=== PATIENT | female | born 1945 ===

== ENCOUNTER 2019-08-20 19:24 | Inpatient (IN) | payer MEDICARE, MEDICAID ==
[~2019-08-20] VITALS: Ht 152.4 cm; Wt 50.4 kg
--- NOTE | 2019-08-20 19:43 | PHYS DOC ---
Adult General Chief Complaint Chief Complaint: PSYCH EVALUATION HPI HPI Patient is a here for med clearance for psych placement [facility]. no medical complaints at this time incresaingly agitated and has a bed at [facility] already. Review of Systems Review of Systems Limited by dementia Allergies Allergies Allergies Coded Allergies Type Severity Reaction Last Updated Verified Penicillins Allergy Unknown 08/20/19 Yes mushroom Allergy Unknown 08/20/19 Yes sulfamethoxazole Allergy Unknown 08/20/19 Yes trimethoprim Allergy Unknown 08/20/19 Yes Physical Exam Physical Exam Constitutional: Well developed, well nourished, no acute distress, non-toxic appearance. [] HENT: Normocephalic, atraumatic, bilateral external ears normal, oropharynx moist, no oral exudates, nose normal. [] Eyes: PERRLA, EOMI, conjunctiva normal, no discharge. [] Neck: Normal range of motion, no tenderness, supple, no stridor. [] Cardiovascular:Heart rate regular rhythm, no murmur [] Lungs & Thorax: Bilateral breath sounds clear to auscultation [] Abdomen: Bowel sounds normal, soft, no tenderness, no masses, no pulsatile masses. [] Skin: Warm, dry, no erythema, no rash. [] Extremities: No tenderness, no cyanosis, no clubbing, ROM intact, no edema. [] Neurologic: Alert and responsive. normal motor function, normal sensory function, no focal deficits noted. [] Psychologic: redirectable calm in the emergency deparmtnet. . [] Current Patient Data Vital Signs Temperature (Fahrenheit): * 98.4 degrees F (97.6-99.5) Patient Temperature * 98.4 degrees F (97.5-99.5) Temperature Source * Oral Blood Pressure Systolic * 135 mm Hg (100-140) Blood Pressure Diastolic * 78 mm Hg (60-100) Blood Pressure Mean * 97 mm Hg Blood Pressure Location * Left Arm Blood Pressure Source * Automatic Cuff Pulse Rate * 76 beats per minute (60-90) Pulse Assessment Method * Monitor Respiratory Rate * 16 breaths per minute (12-24) Oxygen Delivery Method * Room Air Bedside Pulse Oximetry * 97 % EKG EKG []EKG shows a normal sinus rhythm with rate of 74 nonspecific changes anteriorly QTC is 411 no STEMI interpreted by me the time of encounter. Radiology/Procedures Radiology/Procedures [] Course & Med Decision Making Course & Med Decision Making Pertinent Labs and Imaging studies reviewed. (See chart for details) []Labs and EKG looked normal patient is well-appearing the emergency room stable vital signs acceptable for medical clearance at this time. Dragon Disclaimer Dragon Disclaimer This electronic medical record was generated, in whole or in part, using a voice recognition dictation system. Departure Departure: Impression: Primary Impression: Dementia Disposition: 65 XFER TO PSYCH HOSP/UNIT Condition: STABLE ROSA WILKINSON MD Aug 20, 2019 19:43
[2019-08-20 20:20] LABS: CALCIUM 8.4 mg/dL (8.5-10.1); CREATININE 0.5 mg/dL (0.6-1.0); GFR 121.3; POTASSIUM 3.9 mmol/L (3.5-5.1)
[2019-08-20 20:25] LABS: ALBUMIN 2.8 g/dL (3.4-5.0); ALBUMIN/GLOBULIN RATIO 0.7 (1.0-1.7); MAGNESIUM 1.9 mg/dL (1.8-2.4); TOTAL BILIRUBIN 0.2 mg/dL (0.2-1.0); TOTAL PROTEIN 6.9 g/dL (6.4-8.2)
[2019-08-20] MEDS ORDERED: MIRTAZAPINE 15 MG TABLET PO SCH (20:30)
[2019-08-20 20:31] LABS: BASO % 0 % (0-3); EOS # 0.3 x10^3/uL (0.0-0.7); EOS % 3 % (0-3); HEMATOCRIT 32.3 % (36.0-47.0); HEMOGLOBIN 10.4 g/dL (12.0-15.5); LYMPH # 1.5 x10^3/uL (1.0-4.8); LYMPH % 18 % (24-48); MEAN CORPUSCULAR HEMOGLOBIN 28 pg (25-35); MEAN CORPUSCULAR HGB CONC 32 g/dL (31-37); MEAN CORPUSCULAR VOLUME 87 fL (79-100); MONO # 0.6 x10^3/uL (0.0-1.1); MONO % 7 % (0-9); NEUT # 5.9 x10^3uL (1.8-7.7); NEUT % 71 % (31-73); PLATELET COUNT 428 x10^3/uL (140-400); RED BLOOD COUNT 3.73 x10^6/uL (3.50-5.40); RED CELL DISTRIBUTION WIDTH 16.7 % (11.5-14.5); WHITE BLOOD COUNT 8.3 x10^3/uL (4.0-11.0)
[2019-08-20 20:58] LABS: BACTERIA,URINE 0 /HPF (0-FEW); BILIRUBIN,URINE NEG (NEG); CLARITY,URINE CLEAR; COLOR,URINE YELLOW; GLUCOSE,URINE NEG (NEG); NITRITE,URINE NEG (NEG); RBC,URINE RARE /HPF (0-2); SQUAMOUS EPITHELIAL CELL,UR OCC /LPF; UROBILINOGEN,URINE 0.2 mg/dL (0.2 mg/dL); WBC,URINE RARE /HPF (0-4)
[2019-08-20] MEDS ORDERED: ACET325T21 PO (21:14)
[2019-08-20] MEDS ORDERED: ESCITALOPRAM OX10 MG PO (21:14)
[2019-08-20] MEDS ORDERED: QUET25TA5 PO (21:14)
[2019-08-20] MEDS ORDERED: THIA100T57 PO (21:14)
[2019-08-20] MEDS ORDERED: MIRT15TA3 PO (21:14)
[2019-08-20] MEDS ORDERED: ACETAMINOPHEN 325 MG TABLET PO PRN ×2 (22:15)
[2019-08-20] MEDS ORDERED: MAGNESIUM HYDROXIDE 2,400 MG/30 ML ORAL.SUSP. PO PRN (22:15)
[2019-08-20] MEDS ORDERED: MAG HYDROX/AL HYDROX/SIMETH 30 ML ORAL.SUSP PO PRN (22:15)
[2019-08-20] MEDS ORDERED: METHYL SALICYLATE/MENTHOL TOPICAL OINTMENT 57GM TUBE. TP PRN (22:15)
[2019-08-20 22:26] VITALS: BP 125/66
[2019-08-20] MEDS: QUEtiapine 25 MG TABLET. PO SCH (22:47)
[2019-08-20] MEDS: MIRTAZAPINE 15 MG TABLET PO SCH (22:47)
[2019-08-21 05:52] VITALS: BP 105/64
--- NOTE | 2019-08-21 06:51 | EKG ---
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
[2019-08-21] MEDS: CITALOPRAM 20 MG TABLET. PO SCH (08:59)
[2019-08-21] MEDS: THIAMINE 100 MG TABLET. PO SCH (08:59)
[2019-08-21 14:01] LABS: THYROID STIM HORMONE (TSH) 3.859 uIU/mL (0.358-3.740)
[2019-08-21 15:37] VITALS: BP 128/76
[2019-08-21] MEDS: CHOLECALCIFEROL (VITAMIN D3) 50,000 UNIT CAPSULE PO SCH (17:08)
[2019-08-21 18:07] LABS: THYROXINE 5.5 ug/dL (4.5-12.0)
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
[2019-08-21] MEDS: QUEtiapine 25 MG TABLET. PO SCH (19:55)
[2019-08-21] MEDS: MIRTAZAPINE 15 MG TABLET PO SCH (19:55)
--- NOTE | 2019-08-21 21:11 | PDOC ---
Exam Note: Ojrge Note: Please also refer to the separate dictated note~for this date of service dictated separately.~Patient seen individually. Discussed the patient with Nursing staff reviewed the chart.~Reviewed interim history and current functioning. Reviewed vital signs,~Labs/ Radiology~and current medications noted below. Continue current treatment with the changes noted in the dictated addendum note Assessment: Vital Signs/I&O: Vital Signs Date Time Temp Pulse Resp B/P (MAP) Pulse Ox O2 Delivery O2 Flow Rate FiO2 08/21/19 15:37 97.1 88 22 128/76 (93) 96 08/20/19 22:26 Room Air I & O 08/20/19 08/20/19 08/21/19 15:00 23:00 07:00 Intake Total 0 ml Balance 0 ml Current Medications: Meds: Current Medications Medications (Trade) Dose Ordered Sig/Julissa Route PRN Reason Start Time Stop Time Status Last Admin Dose Admin Thiamine HCl (Vitamin B-1) 100 mg DAILY PO 08/21/19 09:00 08/21/19 08:59 Quetiapine Fumarate (SEROquel) 25 mg HS PO 08/20/19 22:30 08/21/19 19:55 Citalopram Hydrobromide (CeleXA) 20 mg DAILY PO 08/21/19 09:00 08/21/19 08:59 Mirtazapine (Remeron) 15 mg HS PO 08/20/19 22:30 08/21/19 19:55 Vitamin D (Vitamin D3) 50,000 unit WEEKLY PO 08/21/19 16:45 08/21/19 17:08 I have reviewed the current psychotropics carefully including drug interactions. Risk benefit ratio favors no change other than as noted in my dictated progress note. Diagnosis: Problems: (1) Anxiety disorder (2) Dementia in Alzheimer's disease with delusions (3) Dementia in Alzheimer's disease with depression (4) Dementia, vascular, with delusions (5) Dementia, vascular, with depression (6) Impulse control disorder (7) Bipolar disorder, curr episode mixed, severe, with psychotic features PILO WOLFE MD Aug 21, 2019 21:10
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
[2019-08-22 00:07] LABS: HEMOGLOBIN A1C 5.2 % (4.8-5.6)
[2019-08-22 06:03] VITALS: BP 108/71
[2019-08-22] MEDS: THIAMINE 100 MG TABLET. PO SCH (08:07)
[2019-08-22] MEDS: CITALOPRAM 20 MG TABLET. PO SCH (08:07)
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
[2019-08-22 15:51] VITALS: BP 113/71
[2019-08-22] MEDS: QUEtiapine 25 MG TABLET. PO SCH (17:21)
[2019-08-22] MEDS: MIRTAZAPINE 15 MG TABLET PO SCH (19:32)
--- NOTE | 2019-08-22 20:59 | PDOC ---
Exam Note: Jorge Note: Please also refer to the separate dictated note~for this date of service dictated separately.~Patient seen individually. Discussed the patient with Nursing staff reviewed the chart.~Reviewed interim history and current functioning. Reviewed vital signs,~Labs/ Radiology~and current medications noted below. Continue current treatment with the changes noted in the dictated addendum note Assessment: Vital Signs/I&O: Vital Signs Date Time Temp Pulse Resp B/P (MAP) Pulse Ox O2 Delivery O2 Flow Rate FiO2 08/22/19 15:51 97.6 81 18 113/71 (85) 96 Room Air I & O 08/21/19 08/21/19 08/22/19 15:00 23:00 07:00 Intake Total 840 ml 240 ml 120 ml Balance 840 ml 240 ml 120 ml Current Medications: Meds: Current Medications Medications (Trade) Dose Ordered Sig/Julissa Route PRN Reason Start Time Stop Time Status Last Admin Dose Admin Quetiapine Fumarate (SEROquel) 12.5 mg 0900,1700 PO 08/22/19 17:15 08/22/19 17:21 I have reviewed the current psychotropics carefully including drug interactions. Risk benefit ratio favors no change other than as noted in my dictated progress note. Diagnosis: Problems: (1) Bipolar disorder, curr episode mixed, severe, with psychotic features (2) Anxiety disorder (3) Dementia in Alzheimer's disease with delusions (4) Dementia in Alzheimer's disease with depression (5) Dementia, vascular, with delusions (6) Dementia, vascular, with depression (7) Impulse control disorder PILO WOLFE MD Aug 22, 2019 20:59
[2019-08-23 05:52] VITALS: BP 108/78
[2019-08-23] MEDS: DIVALPROEX 125 MG CAP.SPRINK PO SCH ×2 (08:54→17:08)
[2019-08-23] MEDS: CITALOPRAM 20 MG TABLET. PO SCH (08:54)
[2019-08-23] MEDS: THIAMINE 100 MG TABLET. PO SCH (08:54)
[2019-08-23] MEDS: QUEtiapine 25 MG TABLET. PO SCH ×2 (08:54→17:08)
[2019-08-23 15:37] VITALS: BP 121/76
[2019-08-23] MEDS: MIRTAZAPINE 15 MG TABLET PO SCH (20:03)
--- NOTE | 2019-08-23 21:06 | PDOC ---
Exam Note: Jorge Note: Please also refer to the separate dictated note~for this date of service dictated separately.~Patient seen individually. Discussed the patient with Nursing staff reviewed the chart.~Reviewed interim history and current functioning. Reviewed vital signs,~Labs/ Radiology~and current medications noted below. Continue current treatment with the changes noted in the dictated addendum note Assessment: Vital Signs/I&O: Vital Signs Date Time Temp Pulse Resp B/P (MAP) Pulse Ox O2 Delivery O2 Flow Rate FiO2 08/23/19 15:37 97.5 105 22 121/76 (91) 96 Room Air I & O 08/22/19 08/22/19 08/23/19 15:00 23:00 07:00 Intake Total 240 ml 360 ml Balance 240 ml 360 ml Current Medications: Meds: Current Medications Medications (Trade) Dose Ordered Sig/Julissa Route PRN Reason Start Time Stop Time Status Last Admin Dose Admin Divalproex Sodium (Depakote Sprinkles) 125 mg 0900,1700 PO 08/23/19 09:00 08/23/19 17:08 I have reviewed the current psychotropics carefully including drug interactions. Risk benefit ratio favors no change other than as noted in my dictated progress note. Diagnosis: Problems: (1) Bipolar disorder, curr episode mixed, severe, with psychotic features (2) Anxiety disorder (3) Dementia in Alzheimer's disease with delusions (4) Dementia in Alzheimer's disease with depression (5) Dementia, vascular, with delusions (6) Dementia, vascular, with depression (7) Impulse control disorder PILO WOLFE MD Aug 23, 2019 21:06
[2019-08-24 05:59] VITALS: BP 97/67
[2019-08-24] MEDS: QUEtiapine 25 MG TABLET. PO SCH ×2 (08:43→08:50)
[2019-08-24] MEDS: THIAMINE 100 MG TABLET. PO SCH (08:43)
[2019-08-24] MEDS: DIVALPROEX 125 MG CAP.SPRINK PO SCH ×2 (08:49→17:00)
[2019-08-24] MEDS: CITALOPRAM 20 MG TABLET. PO SCH (08:49)
[2019-08-24 15:48] VITALS: BP 112/74
[2019-08-24] MEDS: MIRTAZAPINE 15 MG TABLET PO SCH (20:27)
--- NOTE | 2019-08-24 21:07 | PDOC ---
Exam Note: Jorge Note: Please also refer to the separate dictated note~for this date of service dictated separately.~Patient seen individually. Discussed the patient with Nursing staff reviewed the chart.~Reviewed interim history and current functioning. Reviewed vital signs,~Labs/ Radiology~and current medications noted below. Continue current treatment with the changes noted in the dictated addendum note Assessment: Vital Signs/I&O: Vital Signs Date Time Temp Pulse Resp B/P (MAP) Pulse Ox O2 Delivery O2 Flow Rate FiO2 08/24/19 15:48 97.6 70 16 112/74 (87) 97 08/23/19 15:37 Room Air I & O 08/23/19 08/23/19 08/24/19 15:00 23:00 07:00 Intake Total 720 ml 120 ml Balance 720 ml 120 ml Current Medications: I have reviewed the current psychotropics carefully including drug interactions. Risk benefit ratio favors no change other than as noted in my dictated progress note. Diagnosis: Problems: (1) Bipolar disorder, curr episode mixed, severe, with psychotic features (2) Dementia (3) Anxiety disorder (4) Dementia in Alzheimer's disease with delusions (5) Dementia in Alzheimer's disease with depression (6) Dementia, vascular, with delusions (7) Dementia, vascular, with depression (8) Impulse control disorder PILO WOLFE MD Aug 24, 2019 21:07
--- NOTE | 2019-08-24 23:10 | PN ---
DATE: 08/22/2019 This late entry of 08/22 covers elements not covered in my initial note. SUBJECTIVE: I met with the patient evening of 08/22. Per REGINO Anderson, the patient slept 7 hours previous night. She has been restless, confused, difficult to redirect, constantly up and down the hallway in her wheelchair. Received Zyprexa x 2 p.r.n. of 2.5 mg. REVIEW OF SYSTEMS: Ambulation impaired, in wheelchair. No CV, , pulmonary, eye, ENT system symptoms on review. Reliability poor. MENTAL STATUS EXAMINATION: Oriented to herself. Insight, judgment, recent and remote memory, attention, concentration, fund of knowledge poor consistent with her diagnoses. IMPRESSION: Major neurocognitive disorder; Alzheimer, vascular with delusion; depression; behavioral disturbance; anxiety disorder, unspecified; impulse control disorder, unspecified; bipolar disorder, mixed with psychotic features; history of alcohol abuse. PLAN: From a psychiatric standpoint, we will start Seroquel 12.5 mg 9 a.m. and 5 p.m. as a mood stabilizer. She has had marked mood lability, anxiety, irritability, and we will also start Depakote as a mood stabilizer 125 mg 9:00 a.m. and 5:00 p.m. Check CBC, CMP, valproic acid level, ammonia level in 3 days. Maintain Lexapro 10 mg a day, Remeron 15 mg at bedtime, Seroquel 25 mg at bedtime, Zyprexa p.r.n. Rest unchanged for now from initial note. PILO WOLFE MD DR: GEORGE/dacia JOB#: [id number] / [id number]
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
[2019-08-25 05:21] VITALS: BP 115/70
[2019-08-25] MEDS: THIAMINE 100 MG TABLET. PO SCH (07:57)
[2019-08-25] MEDS: QUEtiapine 25 MG TABLET. PO SCH ×2 (07:57→17:00)
[2019-08-25] MEDS: CITALOPRAM 20 MG TABLET. PO SCH (07:57)
[2019-08-25] MEDS: DIVALPROEX 125 MG CAP.SPRINK PO SCH ×2 (07:57→17:00)
[2019-08-25 09:53] LABS: BASO % 0 % (0-3); EOS # 0.3 x10^3/uL (0.0-0.7); EOS % 4 % (0-3); HEMATOCRIT 32.1 % (36.0-47.0); HEMOGLOBIN 10.4 g/dL (12.0-15.5); LYMPH # 1.9 x10^3/uL (1.0-4.8); LYMPH % 25 % (24-48); MEAN CORPUSCULAR HEMOGLOBIN 28 pg (25-35); MEAN CORPUSCULAR HGB CONC 32 g/dL (31-37); MEAN CORPUSCULAR VOLUME 85 fL (79-100); MONO # 0.7 x10^3/uL (0.0-1.1); MONO % 9 % (0-9); NEUT # 4.6 x10^3uL (1.8-7.7); NEUT % 62 % (31-73); PLATELET COUNT 423 x10^3/uL (140-400); RED BLOOD COUNT 3.76 x10^6/uL (3.50-5.40); RED CELL DISTRIBUTION WIDTH 17.4 % (11.5-14.5); WHITE BLOOD COUNT 7.5 x10^3/uL (4.0-11.0)
[2019-08-25 10:10] LABS: ALBUMIN 3.1 g/dL (3.4-5.0); ALBUMIN/GLOBULIN RATIO 0.7 (1.0-1.7); CALCIUM 8.9 mg/dL (8.5-10.1); CREATININE 0.6 mg/dL (0.6-1.0); GFR 98.3; TOTAL BILIRUBIN 0.2 mg/dL (0.2-1.0); TOTAL PROTEIN 7.5 g/dL (6.4-8.2)
[2019-08-25 16:08] VITALS: BP 101/63
[2019-08-25] MEDS: MIRTAZAPINE 15 MG TABLET PO SCH (20:34)
--- NOTE | 2019-08-25 21:44 | PDOC ---
Exam Note: Jorge Note: Please also refer to the separate dictated note~for this date of service dictated separately.~Patient seen individually. Discussed the patient with Nursing staff reviewed the chart.~Reviewed interim history and current functioning. Reviewed vital signs,~Labs/ Radiology~and current medications noted below. Continue current treatment with the changes noted in the dictated addendum note Assessment: Vital Signs/I&O: Vital Signs Date Time Temp Pulse Resp B/P (MAP) Pulse Ox O2 Delivery O2 Flow Rate FiO2 08/25/19 16:08 97.0 78 18 101/63 (76) 98 08/23/19 15:37 Room Air I & O 08/24/19 08/24/19 08/25/19 15:00 23:00 07:00 Intake Total 840 ml 480 ml Balance 840 ml 480 ml Labs: Laboratory Tests Test 08/25/19 09:30 White Blood Count 7.5 x10^3/uL (4.0-11.0) Red Blood Count 3.76 x10^6/uL (3.50-5.40) Hemoglobin 10.4 g/dL (12.0-15.5) L Hematocrit 32.1 % (36.0-47.0) L Mean Corpuscular Volume 85 fL (79-100) Mean Corpuscular Hemoglobin 28 pg (25-35) Mean Corpuscular Hemoglobin Concent 32 g/dL (31-37) Red Cell Distribution Width 17.4 % (11.5-14.5) H Platelet Count 423 x10^3/uL (140-400) H Neutrophils (%) (Auto) 62 % (31-73) Lymphocytes (%) (Auto) 25 % (24-48) Monocytes (%) (Auto) 9 % (0-9) Eosinophils (%) (Auto) 4 % (0-3) H Basophils (%) (Auto) 0 % (0-3) Neutrophils # (Auto) 4.6 x10^3uL (1.8-7.7) Lymphocytes # (Auto) 1.9 x10^3/uL (1.0-4.8) Monocytes # (Auto) 0.7 x10^3/uL (0.0-1.1) Eosinophils # (Auto) 0.3 x10^3/uL (0.0-0.7) Basophils # (Auto) 0.0 x10^3/uL (0.0-0.2) Sodium Level 145 mmol/L (136-145) Potassium Level 4.0 mmol/L (3.5-5.1) Chloride Level 107 mmol/L (98-107) Carbon Dioxide Level 28 mmol/L (21-32) Anion Gap 10 (6-14) Blood Urea Nitrogen 14 mg/dL (7-20) Creatinine 0.6 mg/dL (0.6-1.0) Estimated GFR (Cockcroft-Gault) 98.3 BUN/Creatinine Ratio 23 (6-20) H Glucose Level 111 mg/dL (70-99) H Calcium Level 8.9 mg/dL (8.5-10.1) Total Bilirubin 0.2 mg/dL (0.2-1.0) Aspartate Amino Transferase (AST) 24 U/L (15-37) Alanine Aminotransferase (ALT) 20 U/L (14-59) Alkaline Phosphatase 84 U/L (46-116) Ammonia < 10 mcmol/L (11-34) L Total Protein 7.5 g/dL (6.4-8.2) Albumin 3.1 g/dL (3.4-5.0) L Albumin/Globulin Ratio 0.7 (1.0-1.7) L Current Medications: I have reviewed the current psychotropics carefully including drug interactions. Risk benefit ratio favors no change other than as noted in my dictated progress note. Diagnosis: Problems: (1) Bipolar disorder, curr episode mixed, severe, with psychotic features (2) Dementia (3) Anxiety disorder (4) Dementia in Alzheimer's disease with delusions (5) Dementia in Alzheimer's disease with depression (6) Dementia, vascular, with delusions (7) Dementia, vascular, with depression (8) Impulse control disorder PILO WOLFE MD Aug 25, 2019 21:44
[2019-08-26 06:57] VITALS: BP 104/68
[2019-08-26] MEDS: CITALOPRAM 20 MG TABLET. PO SCH (08:00)
[2019-08-26] MEDS: THIAMINE 100 MG TABLET. PO SCH (08:00)
[2019-08-26] MEDS: DIVALPROEX 125 MG CAP.SPRINK PO SCH ×2 (08:00→17:00)
[2019-08-26] MEDS: QUEtiapine 25 MG TABLET. PO SCH ×2 (08:00→17:00)
[2019-08-26 11:06] LABS: VAL ACID 26 mcg/mL (50-100)
[2019-08-26 15:51] VITALS: BP 100/66
--- NOTE | 2019-08-26 16:00 | PN ---
DATE: 08/24/2019 PSYCHIATRIC PROGRESS NOTE This late entry 08/24/2019 covers elements not covered in my initial note. SUBJECTIVE: I met with the patient evening of 08/24/2019. Per REGINO Benavides, the patient slept 6 hours previous night. She has been confused, agitated, yelling at times, refused meds in the morning. She wanted 2 bags of Oreos before she would take her meds and then did take it after this. REVIEW OF SYSTEMS: Ambulation impaired, in wheelchair. No CV, , pulmonary, eye system symptoms on review. MENTAL STATUS EXAM: Oriented to herself. Insight, judgment, recent and remote memory, attention, concentration, fund of knowledge poor, consistent with her diagnosis mentioned in my initial note. PLAN: No change from initial note. MAN Silas WOLFE MD DR: GEORGE/dacia JOB#: [id number] / [id number]
--- NOTE | 2019-08-26 20:53 | PDOC ---
Exam Note: Jorge Note: Please also refer to the separate dictated note~for this date of service dictated separately.~Patient seen individually. Discussed the patient with Nursing staff reviewed the chart.~Reviewed interim history and current functioning. Reviewed vital signs,~Labs/ Radiology~and current medications noted below. Continue current treatment with the changes noted in the dictated addendum note Assessment: Vital Signs/I&O: Vital Signs Date Time Temp Pulse Resp B/P (MAP) Pulse Ox O2 Delivery O2 Flow Rate FiO2 08/26/19 15:51 97.9 73 18 100/66 (77) 97 08/23/19 15:37 Room Air I & O 08/25/19 08/25/19 08/26/19 15:00 23:00 07:00 Intake Total 720 ml 240 ml Balance 720 ml 240 ml Labs: Laboratory Tests Test 08/26/19 09:30 Valproic Acid Level 26 mcg/mL (50-100) L Valproic Acid Last Dose Date 08/25/19 Valproic Acid Last Dose Time 1700 Current Medications: I have reviewed the current psychotropics carefully including drug interactions. Risk benefit ratio favors no change other than as noted in my dictated progress note. Diagnosis: Problems: (1) Bipolar disorder, curr episode mixed, severe, with psychotic features (2) Anxiety disorder (3) Dementia in Alzheimer's disease with delusions (4) Dementia in Alzheimer's disease with depression (5) Dementia, vascular, with delusions (6) Dementia, vascular, with depression (7) Impulse control disorder PILO WOLFE MD Aug 26, 2019 20:53
[2019-08-26] MEDS: MIRTAZAPINE 15 MG TABLET PO SCH (20:59)
--- NOTE | 2019-08-26 21:46 | PN ---
DATE: 08/25/2019 PSYCHIATRIC PROGRESS NOTE. This late entry of 08/25/2019 covers the elements not covered in my initial note. SUBJECTIVE: I met with the patient in the evening of 08/25/2019. The patient slept 7-1/4 hours previous night. She remains confused in a wheelchair, but better per nursing report. Valproic acid level is due on 08/26/2019. REVIEW OF SYSTEMS: Ambulation impaired, in wheelchair. No CV, , pulmonary, eye, ENT system symptoms on review. Reliability poor. MENTAL STATUS EXAM: Oriented to herself. Insight, judgment, recent and remote memory, attention, concentration, fund of knowledge poor, consistent with her diagnosis mentioned in my initial note. PLAN: No change from initial note. MAN Silas WOLFE MD DR: GEORGE/dacia JOB#: [id number] / [id number]
[2019-08-27 05:59] VITALS: BP 96/67
[2019-08-27] MEDS: DIVALPROEX 125 MG CAP.SPRINK PO SCH ×2 (08:00→17:24)
[2019-08-27] MEDS: THIAMINE 100 MG TABLET. PO SCH (08:00)
[2019-08-27] MEDS: CITALOPRAM 20 MG TABLET. PO SCH (08:00)
[2019-08-27] MEDS: QUEtiapine 25 MG TABLET. PO SCH ×2 (08:01→17:24)
[2019-08-27 15:53] VITALS: BP 109/67
[2019-08-27] MEDS: MIRTAZAPINE 15 MG TABLET PO SCH (19:45)
--- NOTE | 2019-08-27 21:13 | PDOC ---
Exam Note: Jorge Note: Please also refer to the separate dictated note~for this date of service dictated separately.~Patient seen individually. Discussed the patient with Nursing staff reviewed the chart.~Reviewed interim history and current functioning. Reviewed vital signs,~Labs/ Radiology~and current medications noted below. Continue current treatment with the changes noted in the dictated addendum note Assessment: Vital Signs/I&O: Vital Signs Date Time Temp Pulse Resp B/P (MAP) Pulse Ox O2 Delivery O2 Flow Rate FiO2 08/27/19 15:53 97.7 80 20 109/67 (81) 97 Room Air I & O 08/26/19 08/26/19 08/27/19 15:00 23:00 07:00 Intake Total 600 ml 120 ml Balance 600 ml 120 ml Current Medications: Meds: Current Medications Medications (Trade) Dose Ordered Sig/Julissa Route PRN Reason Start Time Stop Time Status Last Admin Dose Admin Divalproex Sodium (Depakote Sprinkles) 250 mg 0900,1700 PO 08/27/19 09:00 08/27/19 17:24 I have reviewed the current psychotropics carefully including drug interactions. Risk benefit ratio favors no change other than as noted in my dictated progress note. Diagnosis: Problems: (1) Bipolar disorder, curr episode mixed, severe, with psychotic features (2) Anxiety disorder (3) Dementia in Alzheimer's disease with delusions (4) Dementia in Alzheimer's disease with depression (5) Dementia, vascular, with delusions (6) Dementia, vascular, with depression (7) Impulse control disorder PILO WOLFE MD Aug 27, 2019 21:13
--- NOTE | 2019-08-28 01:24 | PN ---
DATE: 08/26/2019 PSYCHIATRIC PROGRESS NOTE This late entry of 08/26 covers elements not covered in my initial note. SUBJECTIVE: I met with the patient in the evening. Per Ines RN, the patient slept 7 hours the previous night. She remains confused, agitated, yelling at times, delusional, somewhat abrasive at staff, refusing medications. Valproic acid level is less than 10. Ammonia is 26. REVIEW OF SYSTEMS: Ambulation impaired, in wheelchair. No CV, , pulmonary, eye system symptoms on review. Reliability poor. MENTAL STATUS EXAMINATION: Oriented to herself. Insight, judgment, recent and remote memory, attention, concentration, fund of knowledge poor; consistent with her diagnoses. FINAL DIAGNOSES IMPRESSION: Major neurocognitive disorder, Alzheimer, vascular with delusion, depression, behavioral disturbance; anxiety disorder, unspecified; impulse control disorder, unspecified. PLAN: Increase Depakote Sprinkles from 125 twice a day to 250 twice a day. Check CBC, CMP, valproic acid level, ammonia level in 3 days. Continue Celexa, Remeron, Seroquel unchanged for now, along with Zyprexa p.r.n. MAN Silas WOLFE MD DR: GEORGE/dacia JOB#: [id number] / [id number]
[2019-08-28 05:52] VITALS: BP 112/63
[2019-08-28] MEDS: CHOLECALCIFEROL (VITAMIN D3) 50,000 UNIT CAPSULE PO SCH (08:48)
[2019-08-28] MEDS: DIVALPROEX 125 MG CAP.SPRINK PO SCH ×2 (08:49→17:34)
[2019-08-28] MEDS: QUEtiapine 25 MG TABLET. PO SCH (08:49)
[2019-08-28] MEDS: CITALOPRAM 20 MG TABLET. PO SCH (08:49)
[2019-08-28] MEDS: THIAMINE 100 MG TABLET. PO SCH (08:49)
[2019-08-28 15:47] VITALS: BP 94/54
[2019-08-28] MEDS: MIRTAZAPINE 15 MG TABLET PO SCH (19:58)
--- NOTE | 2019-08-28 21:18 | PDOC ---
Exam Note: Jorge Note: Please also refer to the separate dictated note~for this date of service dictated separately.~Patient seen individually. Discussed the patient with Nursing staff reviewed the chart.~Reviewed interim history and current functioning. Reviewed vital signs,~Labs/ Radiology~and current medications noted below. Continue current treatment with the changes noted in the dictated addendum note Assessment: Vital Signs/I&O: Vital Signs Date Time Temp Pulse Resp B/P (MAP) Pulse Ox O2 Delivery O2 Flow Rate FiO2 08/28/19 15:47 98.7 83 20 94/54 (67) 96 08/27/19 15:53 Room Air I & O 08/27/19 08/27/19 08/28/19 15:00 23:00 07:00 Intake Total 600 ml 340 ml Balance 600 ml 340 ml Current Medications: I have reviewed the current psychotropics carefully including drug interactions. Risk benefit ratio favors no change other than as noted in my dictated progress note. Diagnosis: Problems: (1) Bipolar disorder, curr episode mixed, severe, with psychotic features (2) Anxiety disorder (3) Dementia in Alzheimer's disease with delusions (4) Dementia in Alzheimer's disease with depression (5) Dementia, vascular, with delusions (6) Dementia, vascular, with depression (7) Impulse control disorder PILO WOLFE MD Aug 28, 2019 21:18
--- NOTE | 2019-08-28 22:18 | PN ---
DATE: 08/27/2019 This late entry, 08/27, covers elements not covered in my initial note. SUBJECTIVE: I met with the patient evening of 08/27. Per REGINO Lau, the patient slept 6-3/4 hours previous night. She was agitated previous night, yelling, screaming, had a bowel movement, then did better, less anxious during the day on 08/27, but anxious, restless, constantly moving in her wheelchair, agitated, yelling after lunch, received Zyprexa p.r.n. at 1330, then did better. REVIEW OF SYSTEMS: Ambulation impaired, in wheelchair. No CV, , pulmonary, eye, ENT system symptoms on review. Reliability poor. MENTAL STATUS EXAM: Oriented to herself. Insight, judgment, recent and remote memory, attention, concentration, fund of knowledge poor, consistent with her diagnosis mentioned in my initial note. PLAN: No change from initial note. PILO WOLFE MD DR: GEORGE/dacia JOB#: [id number] / [id number]
[2019-08-29 05:51] VITALS: BP 99/64
[2019-08-29 07:00] LABS: BASO % 0 % (0-3); EOS # 0.3 x10^3/uL (0.0-0.7); EOS % 6 % (0-3); HEMATOCRIT 32.3 % (36.0-47.0); HEMOGLOBIN 10.4 g/dL (12.0-15.5); LYMPH # 1.4 x10^3/uL (1.0-4.8); LYMPH % 24 % (24-48); MEAN CORPUSCULAR HEMOGLOBIN 28 pg (25-35); MEAN CORPUSCULAR HGB CONC 32 g/dL (31-37); MEAN CORPUSCULAR VOLUME 85 fL (79-100); MONO # 0.5 x10^3/uL (0.0-1.1); MONO % 8 % (0-9); NEUT # 3.7 x10^3uL (1.8-7.7); NEUT % 62 % (31-73); PLATELET COUNT 338 x10^3/uL (140-400); RED BLOOD COUNT 3.79 x10^6/uL (3.50-5.40); RED CELL DISTRIBUTION WIDTH 17.3 % (11.5-14.5); WHITE BLOOD COUNT 5.9 x10^3/uL (4.0-11.0)
[2019-08-29 07:19] LABS: ALBUMIN 2.9 g/dL (3.4-5.0); ALBUMIN/GLOBULIN RATIO 0.7 (1.0-1.7); ALK PHOS 82 U/L (46-116); ALT (SGPT) 17 U/L (14-59); ANION GAP 9 (6-14); AST (SGOT) 16 U/L (15-37); BLOOD UREA NITROGEN 12 mg/dL (7-20); BUN/CREATININE RATIO 20 (6-20); CALCIUM 8.8 mg/dL (8.5-10.1); CARBON DIOXIDE 30 mmol/L (21-32); CHLORIDE 107 mmol/L (98-107); CREATININE 0.6 mg/dL (0.6-1.0); GFR 98.3; GLUCOSE 113 mg/dL (70-99); POTASSIUM 3.7 mmol/L (3.5-5.1); SODIUM 146 mmol/L (136-145); TOTAL BILIRUBIN 0.3 mg/dL (0.2-1.0); TOTAL PROTEIN 7.3 g/dL (6.4-8.2)
[2019-08-29 07:26] LABS: VAL ACID 57 mcg/mL (50-100)
[2019-08-29] MEDS: THIAMINE 100 MG TABLET. PO SCH (08:36)
[2019-08-29] MEDS: CITALOPRAM 20 MG TABLET. PO SCH (08:36)
[2019-08-29] MEDS: DIVALPROEX 125 MG CAP.SPRINK PO SCH ×2 (08:36→17:41)
[2019-08-29] MEDS: QUEtiapine 25 MG TABLET. PO SCH ×2 (08:36→17:42)
[2019-08-29 15:56] VITALS: BP 113/74
[2019-08-29] MEDS: MIRTAZAPINE 15 MG TABLET PO SCH (19:46)
--- NOTE | 2019-08-29 21:56 | PN ---
DATE: 08/28/2019 This late entry, 08/28, covers elements not covered in my initial note. SUBJECTIVE: I met with the patient in the evening. Per REGINO Lau, the patient slept 7 hours previous night. She is pleasant and compliant in the morning, around lunchtime was yelling, received Zyprexa and Zydis at lunch and then did better, less psychotic, but confused. REVIEW OF SYSTEMS: Ambulation impaired, in wheelchair. As I met with her in the evening, she was constantly pushing the wheelchair forward and backward, restless, anxious. No CV, , pulmonary, eye system symptoms on review. MENTAL STATUS EXAM: Oriented to herself. Insight, judgment, recent and remote memory, attention, concentration, fund of knowledge poor, consistent with her diagnoses. IMPRESSION: Major neurocognitive disorder, Alzheimer, vascular with delusion, depression, behavioral disturbance; anxiety disorder, unspecified; impulse control disorder, unspecified. PLAN: Increase Seroquel from 12.5 mg 0900 and 1700 to 25 mg 0900 and 1700. Continue Celexa, Remeron along with Depakote at current dosage. Valproic acid level is to be drawn on 08/29 and we will adjust thereafter to reach therapeutic level if clinically indicated. PILO WOLFE MD DR: GEORGE/dacia JOB#: [id number] / [id number]
--- NOTE | 2019-08-29 22:07 | PDOC ---
Exam Note: Jorge Note: Please also refer to the separate dictated note~for this date of service dictated separately.~Patient seen individually. Discussed the patient with Nursing staff reviewed the chart.~Reviewed interim history and current functioning. Reviewed vital signs,~Labs/ Radiology~and current medications noted below. Continue current treatment with the changes noted in the dictated addendum note Assessment: Vital Signs/I&O: Vital Signs Date Time Temp Pulse Resp B/P (MAP) Pulse Ox O2 Delivery O2 Flow Rate FiO2 08/29/19 15:56 97.3 68 16 113/74 (87) 96 Room Air I & O 08/28/19 08/28/19 08/29/19 15:00 23:00 07:00 Intake Total 600 ml 600 ml Balance 600 ml 600 ml Labs: Laboratory Tests Test 08/29/19 06:35 White Blood Count 5.9 x10^3/uL (4.0-11.0) Red Blood Count 3.79 x10^6/uL (3.50-5.40) Hemoglobin 10.4 g/dL (12.0-15.5) L Hematocrit 32.3 % (36.0-47.0) L Mean Corpuscular Volume 85 fL (79-100) Mean Corpuscular Hemoglobin 28 pg (25-35) Mean Corpuscular Hemoglobin Concent 32 g/dL (31-37) Red Cell Distribution Width 17.3 % (11.5-14.5) H Platelet Count 338 x10^3/uL (140-400) Neutrophils (%) (Auto) 62 % (31-73) Lymphocytes (%) (Auto) 24 % (24-48) Monocytes (%) (Auto) 8 % (0-9) Eosinophils (%) (Auto) 6 % (0-3) H Basophils (%) (Auto) 0 % (0-3) Neutrophils # (Auto) 3.7 x10^3uL (1.8-7.7) Lymphocytes # (Auto) 1.4 x10^3/uL (1.0-4.8) Monocytes # (Auto) 0.5 x10^3/uL (0.0-1.1) Eosinophils # (Auto) 0.3 x10^3/uL (0.0-0.7) Basophils # (Auto) 0.0 x10^3/uL (0.0-0.2) Sodium Level 146 mmol/L (136-145) H Potassium Level 3.7 mmol/L (3.5-5.1) Chloride Level 107 mmol/L (98-107) Carbon Dioxide Level 30 mmol/L (21-32) Anion Gap 9 (6-14) Blood Urea Nitrogen 12 mg/dL (7-20) Creatinine 0.6 mg/dL (0.6-1.0) Estimated GFR (Cockcroft-Gault) 98.3 BUN/Creatinine Ratio 20 (6-20) Glucose Level 113 mg/dL (70-99) H Calcium Level 8.8 mg/dL (8.5-10.1) Total Bilirubin 0.3 mg/dL (0.2-1.0) Aspartate Amino Transferase (AST) 16 U/L (15-37) Alanine Aminotransferase (ALT) 17 U/L (14-59) Alkaline Phosphatase 82 U/L (46-116) Ammonia 26 mcmol/L (11-34) Total Protein 7.3 g/dL (6.4-8.2) Albumin 2.9 g/dL (3.4-5.0) L Albumin/Globulin Ratio 0.7 (1.0-1.7) L Valproic Acid Level 57 mcg/mL (50-100) Valproic Acid Last Dose Date 08/26/19 Valproic Acid Last Dose Time 1700 Current Medications: Meds: Current Medications Medications (Trade) Dose Ordered Sig/Julissa Route PRN Reason Start Time Stop Time Status Last Admin Dose Admin Quetiapine Fumarate (SEROquel) 25 mg 0900,1700 PO 08/29/19 09:00 08/29/19 17:42 I have reviewed the current psychotropics carefully including drug interactions. Risk benefit ratio favors no change other than as noted in my dictated progress note. Diagnosis: Problems: (1) Bipolar disorder, curr episode mixed, severe, with psychotic features (2) Anxiety disorder (3) Dementia in Alzheimer's disease with delusions (4) Dementia in Alzheimer's disease with depression (5) Dementia, vascular, with delusions (6) Dementia, vascular, with depression (7) Impulse control disorder PILO WOLFE MD Aug 29, 2019 22:07
[2019-08-30] MEDS: QUEtiapine 25 MG TABLET. PO SCH ×3 (09:48→16:55)
[2019-08-30] MEDS: THIAMINE 100 MG TABLET. PO SCH (09:48)
[2019-08-30] MEDS: CITALOPRAM 20 MG TABLET. PO SCH (09:48)
[2019-08-30] MEDS: DIVALPROEX 125 MG CAP.SPRINK PO SCH ×2 (09:49→16:55)
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
[2019-08-30 16:11] VITALS: BP 97/51
[2019-08-30] MEDS: MIRTAZAPINE 15 MG TABLET PO SCH (19:41)
--- NOTE | 2019-08-30 20:59 | PDOC ---
Exam Note: Jorge Note: Please also refer to the separate dictated note~for this date of service dictated separately.~Patient seen individually. Discussed the patient with Nursing staff reviewed the chart.~Reviewed interim history and current functioning. Reviewed vital signs,~Labs/ Radiology~and current medications noted below. Continue current treatment with the changes noted in the dictated addendum note Assessment: Vital Signs/I&O: Vital Signs Date Time Temp Pulse Resp B/P (MAP) Pulse Ox O2 Delivery O2 Flow Rate FiO2 08/30/19 16:11 97.3 74 16 97/51 (66) 97 08/29/19 15:56 Room Air I & O 08/29/19 08/29/19 08/30/19 15:00 23:00 07:00 Intake Total 960 ml 240 ml Balance 960 ml 240 ml Current Medications: Meds: Current Medications Medications (Trade) Dose Ordered Sig/Julissa Route PRN Reason Start Time Stop Time Status Last Admin Dose Admin Quetiapine Fumarate (SEROquel) 25 mg 1300 PO 08/30/19 13:00 08/30/19 13:19 I have reviewed the current psychotropics carefully including drug interactions. Risk benefit ratio favors no change other than as noted in my dictated progress note. Diagnosis: Problems: (1) Bipolar disorder, curr episode mixed, severe, with psychotic features (2) Anxiety disorder (3) Dementia in Alzheimer's disease with delusions (4) Dementia in Alzheimer's disease with depression (5) Dementia, vascular, with delusions (6) Dementia, vascular, with depression (7) Impulse control disorder PILO WOLFE MD Aug 30, 2019 20:59
[2019-08-31 06:09] VITALS: BP 96/63
[2019-08-31] MEDS: DIVALPROEX 125 MG CAP.SPRINK PO SCH ×2 (08:28→17:00)
[2019-08-31] MEDS: THIAMINE 100 MG TABLET. PO SCH (08:28)
[2019-08-31] MEDS: QUEtiapine 25 MG TABLET. PO SCH ×3 (08:28→17:00)
[2019-08-31] MEDS: CITALOPRAM 20 MG TABLET. PO SCH (08:28)
[2019-08-31 16:25] VITALS: BP 116/79
--- NOTE | 2019-08-31 16:26 | PN ---
DATE: 08/30/2019 PSYCHIATRIC PROGRESS NOTE This late entry 08/30/2019 covers elements not covered in my initial note. SUBJECTIVE: I met with the patient evening of 08/30/2019. Per REGINO Ochoa, the patient slept 5 hours previous night. Previous evening, she was agitated, yelling at another patient on the unit. Quite disorganized on 08/30/2019, wandering, agitated, worse at 1:00 p.m., then did better. REVIEW OF SYSTEMS: Ambulation impaired, in wheelchair. No CV, , pulmonary, eye, ENT system symptoms on review. Reliability poor. MENTAL STATUS EXAM: Oriented to herself. Insight, judgment, recent and remote memory, attention, concentration, fund of knowledge poor consistent with her diagnosis mentioned in my initial note. PLAN: No change from initial note. MAN Silas WOLFE MD DR: GEORGE/dacia JOB#: [id number] / [id number]
--- NOTE | 2019-08-31 16:38 | PN ---
DATE: 08/29/2019 PSYCHIATRIC PROGRESS NOTE This late entry 08/29/2019 covers the elements not covered in my initial note. SUBJECTIVE: I met with the patient in the evening of 08/29/2019. Per REGINO Lau, the patient slept for three-quarter hours previous night. She remains confused, anxious, restless, up and down in a wheelchair, exit seeking previous night. In the morning, she was resistive to medications, took them later, crying yet later in the morning, angry, combative, received Zyprexa p.r.n., then did better. Valproic acid level 57, therapeutic. Ammonia 26. REVIEW OF SYSTEMS: Ambulation impaired, in wheelchair. No CV, , pulmonary, eye, ENT system symptoms on review. Reliability poor. MENTAL STATUS EXAM: Oriented to herself. Insight, judgment, recent and remote memory, attention, concentration, fund of knowledge poor, consistent with her diagnosis mentioned in my initial note. PLAN: Continue current psychotropics from initial note. Valproic acid level is therapeutic. Add Seroquel 25 mg at 1 p.m. Rest unchanged. MAN MHeidi WOLFE MD DR: GEORGE/dacia JOB#: [id number] / [id number]
[2019-08-31] MEDS: MIRTAZAPINE 15 MG TABLET PO SCH (20:12)
--- NOTE | 2019-08-31 20:57 | PDOC ---
Exam Note: Jorge Note: Please also refer to the separate dictated note~for this date of service dictated separately.~Patient seen individually. Discussed the patient with Nursing staff reviewed the chart.~Reviewed interim history and current functioning. Reviewed vital signs,~Labs/ Radiology~and current medications noted below. Continue current treatment with the changes noted in the dictated addendum note Assessment: Vital Signs/I&O: Vital Signs Date Time Temp Pulse Resp B/P (MAP) Pulse Ox O2 Delivery O2 Flow Rate FiO2 08/31/19 16:25 98.0 78 20 116/79 (91) 97 08/31/19 06:09 Room Air I & O 08/30/19 08/30/19 08/31/19 15:00 23:00 07:00 Intake Total 1180 ml Balance 1180 ml Current Medications: I have reviewed the current psychotropics carefully including drug interactions. Risk benefit ratio favors no change other than as noted in my dictated progress note. Diagnosis: Problems: (1) Bipolar disorder, curr episode mixed, severe, with psychotic features (2) Anxiety disorder (3) Dementia in Alzheimer's disease with delusions (4) Dementia in Alzheimer's disease with depression (5) Dementia, vascular, with delusions (6) Dementia, vascular, with depression (7) Impulse control disorder PILO WOLFE MD Aug 31, 2019 20:57
[2019-09-01 06:10] VITALS: BP 105/70
[2019-09-01] MEDS: QUEtiapine 25 MG TABLET. PO SCH ×3 (09:00→17:00)
[2019-09-01] MEDS: THIAMINE 100 MG TABLET. PO SCH (09:00)
[2019-09-01] MEDS: DIVALPROEX 125 MG CAP.SPRINK PO SCH ×2 (09:00→17:00)
[2019-09-01] MEDS: CITALOPRAM 20 MG TABLET. PO SCH (09:00)
[2019-09-01 15:26] VITALS: BP 93/64
[2019-09-01] MEDS: MIRTAZAPINE 15 MG TABLET PO SCH (19:49)
[2019-09-01] MEDS: traZODone 50 MG TABLET. PO SCH (19:50)
--- NOTE | 2019-09-01 20:54 | PDOC ---
Exam Note: Jorge Note: Please also refer to the separate dictated note~for this date of service dictated separately.~Patient seen individually. Discussed the patient with Nursing staff reviewed the chart.~Reviewed interim history and current functioning. Reviewed vital signs,~Labs/ Radiology~and current medications noted below. Continue current treatment with the changes noted in the dictated addendum note Assessment: Vital Signs/I&O: Vital Signs Date Time Temp Pulse Resp B/P (MAP) Pulse Ox O2 Delivery O2 Flow Rate FiO2 09/01/19 15:26 98.2 72 20 93/64 (74) 97 09/01/19 06:10 Room Air I & O 08/31/19 08/31/19 09/01/19 15:00 23:00 07:00 Intake Total 842 ml 240 ml Balance 842 ml 240 ml Current Medications: Meds: Current Medications Medications (Trade) Dose Ordered Sig/Julissa Route PRN Reason Start Time Stop Time Status Last Admin Dose Admin Trazodone HCl (Desyrel) 50 mg QHS PO 09/01/19 21:00 09/01/19 19:50 I have reviewed the current psychotropics carefully including drug interactions. Risk benefit ratio favors no change other than as noted in my dictated progress note. Diagnosis: Problems: (1) Bipolar disorder, curr episode mixed, severe, with psychotic features (2) Anxiety disorder (3) Dementia in Alzheimer's disease with delusions (4) Dementia in Alzheimer's disease with depression (5) Dementia, vascular, with delusions (6) Dementia, vascular, with depression (7) Impulse control disorder PILO WOLFE MD Sep 01, 2019 20:54
[2019-09-02 05:48] VITALS: BP 102/68
[2019-09-02] MEDS: QUEtiapine 25 MG TABLET. PO SCH ×3 (07:59→17:43)
[2019-09-02] MEDS: CITALOPRAM 20 MG TABLET. PO SCH (07:59)
[2019-09-02] MEDS: THIAMINE 100 MG TABLET. PO SCH (07:59)
[2019-09-02] MEDS: DIVALPROEX 125 MG CAP.SPRINK PO SCH ×2 (07:59→17:42)
[2019-09-02 15:29] VITALS: BP 91/60
[2019-09-02] MEDS: MIRTAZAPINE 15 MG TABLET PO SCH (20:17)
[2019-09-02] MEDS: traZODone 50 MG TABLET. PO SCH (20:17)
--- NOTE | 2019-09-02 20:56 | PDOC ---
Exam Note: Jorge Note: Please also refer to the separate dictated note~for this date of service dictated separately.~Patient seen individually. Discussed the patient with Nursing staff reviewed the chart.~Reviewed interim history and current functioning. Reviewed vital signs,~Labs/ Radiology~and current medications noted below. Continue current treatment with the changes noted in the dictated addendum note Assessment: Vital Signs/I&O: Vital Signs Date Time Temp Pulse Resp B/P (MAP) Pulse Ox O2 Delivery O2 Flow Rate FiO2 09/02/19 15:29 98.4 83 18 91/60 (70) 96 09/01/19 06:10 Room Air I & O 09/01/19 09/01/19 09/02/19 15:00 23:00 07:00 Intake Total 240 ml 240 ml Balance 240 ml 240 ml Current Medications: Meds: Current Medications Medications (Trade) Dose Ordered Sig/Julissa Route PRN Reason Start Time Stop Time Status Last Admin Dose Admin Trazodone HCl (Desyrel) 50 mg QHS PO 09/01/19 21:00 09/02/19 20:17 I have reviewed the current psychotropics carefully including drug interactions. Risk benefit ratio favors no change other than as noted in my dictated progress note. Diagnosis: Problems: (1) Bipolar disorder, curr episode mixed, severe, with psychotic features (2) Anxiety disorder (3) Dementia in Alzheimer's disease with delusions (4) Dementia in Alzheimer's disease with depression (5) Dementia, vascular, with delusions (6) Dementia, vascular, with depression (7) Impulse control disorder PILO WOLFE MD Sep 02, 2019 20:56
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
[2019-09-03 06:02] VITALS: BP 109/74
[2019-09-03] MEDS: DIVALPROEX 125 MG CAP.SPRINK PO SCH ×2 (08:07→16:51)
[2019-09-03] MEDS: THIAMINE 100 MG TABLET. PO SCH (08:07)
[2019-09-03] MEDS: QUEtiapine 25 MG TABLET. PO SCH ×3 (08:07→16:51)
[2019-09-03] MEDS: CITALOPRAM 20 MG TABLET. PO SCH (08:07)
[2019-09-03 15:57] VITALS: BP 108/60
[2019-09-03] MEDS: traZODone 50 MG TABLET. PO SCH (19:57)
[2019-09-03] MEDS: MIRTAZAPINE 15 MG TABLET PO SCH (19:57)
--- NOTE | 2019-09-03 20:54 | PDOC ---
Exam Note: Jorge Note: Please also refer to the separate dictated note~for this date of service dictated separately.~Patient seen individually. Discussed the patient with Nursing staff reviewed the chart.~Reviewed interim history and current functioning. Reviewed vital signs,~Labs/ Radiology~and current medications noted below. Continue current treatment with the changes noted in the dictated addendum note Assessment: Vital Signs/I&O: Vital Signs Date Time Temp Pulse Resp B/P (MAP) Pulse Ox O2 Delivery O2 Flow Rate FiO2 09/03/19 15:57 97.7 90 20 108/60 (76) 96 09/01/19 06:10 Room Air I & O 09/02/19 09/02/19 09/03/19 15:00 23:00 07:00 Intake Total 1140 ml 360 ml 100 ml Balance 1140 ml 360 ml 100 ml Current Medications: I have reviewed the current psychotropics carefully including drug interactions. Risk benefit ratio favors no change other than as noted in my dictated progress note. Diagnosis: Problems: (1) Bipolar disorder, curr episode mixed, severe, with psychotic features (2) Anxiety disorder (3) Dementia in Alzheimer's disease with delusions (4) Dementia in Alzheimer's disease with depression (5) Dementia, vascular, with delusions (6) Dementia, vascular, with depression (7) Impulse control disorder PILO WOLFE MD Sep 03, 2019 20:54
[2019-09-03] MEDS: traZODone 50 MG TABLET. PO PRN (23:15)
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
[2019-09-04 06:12] VITALS: BP 104/70
[2019-09-04] MEDS: CHOLECALCIFEROL (VITAMIN D3) 50,000 UNIT CAPSULE PO SCH (09:00)
[2019-09-04] MEDS: THIAMINE 100 MG TABLET. PO SCH (12:29)
[2019-09-04] MEDS: CITALOPRAM 20 MG TABLET. PO SCH (12:29)
[2019-09-04] MEDS: DIVALPROEX 125 MG CAP.SPRINK PO SCH ×2 (12:29→17:17)
[2019-09-04] MEDS: QUEtiapine 25 MG TABLET. PO SCH ×3 (12:30→17:18)
[2019-09-04 16:17] VITALS: BP 100/69
[2019-09-04] MEDS: traZODone 100 MG TABLET. PO SCH (19:50)
[2019-09-04] MEDS: MIRTAZAPINE 15 MG TABLET PO SCH (19:50)
--- NOTE | 2019-09-04 21:00 | PDOC ---
Exam Note: Jorge Note: Please also refer to the separate dictated note~for this date of service dictated separately.~Patient seen individually. Discussed the patient with Nursing staff reviewed the chart.~Reviewed interim history and current functioning. Reviewed vital signs,~Labs/ Radiology~and current medications noted below. Continue current treatment with the changes noted in the dictated addendum note Assessment: Vital Signs/I&O: Vital Signs Date Time Temp Pulse Resp B/P (MAP) Pulse Ox O2 Delivery O2 Flow Rate FiO2 09/04/19 16:17 98.2 120 22 100/69 (79) 94 Room Air I & O 09/03/19 09/03/19 09/04/19 15:00 23:00 07:00 Intake Total 840 ml 600 ml Balance 840 ml 600 ml Current Medications: Meds: Current Medications Medications (Trade) Dose Ordered Sig/Julissa Route PRN Reason Start Time Stop Time Status Last Admin Dose Admin Quetiapine Fumarate (SEROquel) 37.5 mg 0900,1700 PO 09/04/19 09:00 09/04/19 17:18 Trazodone HCl (Desyrel) 100 mg QHS PO 09/04/19 21:00 09/04/19 19:50 I have reviewed the current psychotropics carefully including drug interactions. Risk benefit ratio favors no change other than as noted in my dictated progress note. Diagnosis: Problems: (1) Bipolar disorder, curr episode mixed, severe, with psychotic features (2) Anxiety disorder (3) Dementia in Alzheimer's disease with delusions (4) Dementia in Alzheimer's disease with depression (5) Dementia, vascular, with delusions (6) Dementia, vascular, with depression (7) Impulse control disorder PILO WOLFE MD Sep 04, 2019 21:00
--- NOTE | 2019-09-04 21:53 | PN ---
DATE: 09/03/2019 PSYCHIATRIC PROGRESS NOTE This late entry of 09/03 covers elements not covered in my initial note. SUBJECTIVE: I met with the patient in the evening. Per REGINO Leiva, the patient slept 7 hours the previous night. She remains confused, labile in her mood, resistive to medications which she takes crushed. REVIEW OF SYSTEMS: Ambulation impaired, in wheelchair. No CV, , pulmonary, eye system symptoms on review. MENTAL STATUS EXAMINATION: Oriented to herself. Insight, judgment, recent and remote memory, attention, concentration, fund of knowledge poor, consistent with her diagnosis mentioned in my initial note. PLAN: No change from initial note, but given her ongoing mood lability, irritability and she was aggressive towards another patient, we will go ahead and increase her 0900 and 1700 Seroquel from 25 mg up to 37.5 mg, maintain 25 mg at 1300. Continue Celexa, Remeron, Depakote, trazodone. Valproic acid level therapeutic at 57. AST, ALT, ammonia level unremarkable. MAN Silas WOLFE MD DR: GEORGE/dacia JOB#: [id number] / [id number]
[2019-09-05 05:17] VITALS: BP 97/61
[2019-09-05 06:44] LABS: BASO % 1 % (0-3); EOS # 0.2 x10^3/uL (0.0-0.7); EOS % 4 % (0-3); HEMATOCRIT 34.9 % (36.0-47.0); HEMOGLOBIN 11.2 g/dL (12.0-15.5); LYMPH # 1.5 x10^3/uL (1.0-4.8); LYMPH % 27 % (24-48); MEAN CORPUSCULAR HEMOGLOBIN 28 pg (25-35); MEAN CORPUSCULAR HGB CONC 32 g/dL (31-37); MEAN CORPUSCULAR VOLUME 87 fL (79-100); MONO # 0.6 x10^3/uL (0.0-1.1); MONO % 12 % (0-9); NEUT # 3.2 x10^3uL (1.8-7.7); NEUT % 57 % (31-73); PLATELET COUNT 354 x10^3/uL (140-400); RED BLOOD COUNT 4.01 x10^6/uL (3.50-5.40); RED CELL DISTRIBUTION WIDTH 17.8 % (11.5-14.5); WHITE BLOOD COUNT 5.6 x10^3/uL (4.0-11.0)
[2019-09-05 07:02] LABS: ALBUMIN/GLOBULIN RATIO 0.6 (1.0-1.7); CALCIUM 8.9 mg/dL (8.5-10.1); CREATININE 0.7 mg/dL (0.6-1.0); GFR 82.3; POTASSIUM 4.1 mmol/L (3.5-5.1); TOTAL BILIRUBIN 0.2 mg/dL (0.2-1.0); TOTAL PROTEIN 7.7 g/dL (6.4-8.2)
[2019-09-05] MEDS: CITALOPRAM 20 MG TABLET. PO SCH (09:19)
[2019-09-05] MEDS: DIVALPROEX 125 MG CAP.SPRINK PO SCH ×2 (09:19→17:00)
[2019-09-05] MEDS: THIAMINE 100 MG TABLET. PO SCH (09:19)
[2019-09-05] MEDS: QUEtiapine 25 MG TABLET. PO SCH ×3 (09:19→17:00)
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
[2019-09-05 16:00] VITALS: BP 100/65
--- NOTE | 2019-09-05 20:55 | PDOC ---
Exam Note: Jorge Note: Please also refer to the separate dictated note~for this date of service dictated separately.~Patient seen individually. Discussed the patient with Nursing staff reviewed the chart.~Reviewed interim history and current functioning. Reviewed vital signs,~Labs/ Radiology~and current medications noted below. Continue current treatment with the changes noted in the dictated addendum note Assessment: Vital Signs/I&O: Vital Signs Date Time Temp Pulse Resp B/P (MAP) Pulse Ox O2 Delivery O2 Flow Rate FiO2 09/05/19 16:00 97.8 92 18 100/65 (77) 95 09/05/19 05:17 Room Air I & O 09/04/19 09/04/19 09/05/19 14:59 22:59 06:59 Intake Total 480 ml 360 ml Balance 480 ml 360 ml Labs: Laboratory Tests Test 09/05/19 06:30 White Blood Count 5.6 x10^3/uL (4.0-11.0) Red Blood Count 4.01 x10^6/uL (3.50-5.40) Hemoglobin 11.2 g/dL (12.0-15.5) L Hematocrit 34.9 % (36.0-47.0) L Mean Corpuscular Volume 87 fL (79-100) Mean Corpuscular Hemoglobin 28 pg (25-35) Mean Corpuscular Hemoglobin Concent 32 g/dL (31-37) Red Cell Distribution Width 17.8 % (11.5-14.5) H Platelet Count 354 x10^3/uL (140-400) Neutrophils (%) (Auto) 57 % (31-73) Lymphocytes (%) (Auto) 27 % (24-48) Monocytes (%) (Auto) 12 % (0-9) H Eosinophils (%) (Auto) 4 % (0-3) H Basophils (%) (Auto) 1 % (0-3) Neutrophils # (Auto) 3.2 x10^3uL (1.8-7.7) Lymphocytes # (Auto) 1.5 x10^3/uL (1.0-4.8) Monocytes # (Auto) 0.6 x10^3/uL (0.0-1.1) Eosinophils # (Auto) 0.2 x10^3/uL (0.0-0.7) Basophils # (Auto) 0.0 x10^3/uL (0.0-0.2) Sodium Level 143 mmol/L (136-145) Potassium Level 4.1 mmol/L (3.5-5.1) Chloride Level 107 mmol/L (98-107) Carbon Dioxide Level 30 mmol/L (21-32) Anion Gap 6 (6-14) Blood Urea Nitrogen 15 mg/dL (7-20) Creatinine 0.7 mg/dL (0.6-1.0) Estimated GFR (Cockcroft-Gault) 82.3 BUN/Creatinine Ratio 21 (6-20) H Glucose Level 93 mg/dL (70-99) Calcium Level 8.9 mg/dL (8.5-10.1) Total Bilirubin 0.2 mg/dL (0.2-1.0) Aspartate Amino Transferase (AST) 18 U/L (15-37) Alanine Aminotransferase (ALT) 17 U/L (14-59) Alkaline Phosphatase 94 U/L (46-116) Total Protein 7.7 g/dL (6.4-8.2) Albumin 3.0 g/dL (3.4-5.0) L Albumin/Globulin Ratio 0.6 (1.0-1.7) L Current Medications: Meds: Current Medications Medications (Trade) Dose Ordered Sig/Julissa Route PRN Reason Start Time Stop Time Status Last Admin Dose Admin Trazodone HCl (Desyrel) 100 mg QHS PO 09/04/19 21:00 09/04/19 19:50 I have reviewed the current psychotropics carefully including drug interactions. Risk benefit ratio favors no change other than as noted in my dictated progress note. Diagnosis: Problems: (1) Bipolar disorder, curr episode mixed, severe, with psychotic features (2) Anxiety disorder (3) Dementia in Alzheimer's disease with delusions (4) Dementia in Alzheimer's disease with depression (5) Dementia, vascular, with delusions (6) Dementia, vascular, with depression (7) Impulse control disorder PILO WOLFE MD Sep 05, 2019 20:55
[2019-09-05] MEDS: MIRTAZAPINE 15 MG TABLET PO SCH (21:20)
[2019-09-05] MEDS: traZODone 100 MG TABLET. PO SCH (21:20)
[2019-09-05] MEDS: traZODone 50 MG TABLET. PO PRN (23:46)
--- NOTE | 2019-09-06 03:52 | PN ---
DATE: 09/04/2019 PSYCHIATRIC PROGRESS NOTE This late entry 09/04/2019 covers elements not covered in my initial note. SUBJECTIVE: I met with the patient evening of 09/04/2019. Per REGINO Pérez, the patient slept just one hour previous night. She got repeat trazodone and Zyprexa, slept in the morning from 6:00 a.m. to noon. She has been anxious, tearful, running her wheelchair into the door, received Zyprexa at 4:00 p.m., took her meds in pudding. Refused them at 1300 hours. REVIEW OF SYSTEMS: Ambulation impaired, in wheelchair. No CV, , pulmonary, eye, ENT system symptoms on review. Reliability poor. MENTAL STATUS EXAM: Oriented to herself. Insight, judgment, recent and remote memory, attention, concentration, fund of knowledge poor, consistent with her diagnoses. IMPRESSION: Major neurocognitive disorder; Alzheimer; vascular with delusion; depression; behavioral disturbance; anxiety disorder, unspecified; impulse control disorder, unspecified. PLAN: Increase trazodone from 50 mg at bedtime, may repeat x 1 to 100 mg at bedtime, may repeat x 1 of 50 mg dosage. Seroquel has been increased to 37.5 mg at 0900, 1700 and 25 mg at 1300, Remeron 15 mg at bedtime, Celexa 20 mg a day, Zyprexa p.r.n., Depakote 250 mg twice a day. Valproic acid level therapeutic at 57. Adjust further as clinically indicated. PILO WOLFE MD DR: GEORGE/dacia JOB#: [id number] / [id number]
[2019-09-06 06:41] VITALS: BP 94/62
[2019-09-06] MEDS: THIAMINE 100 MG TABLET. PO SCH (12:21)
[2019-09-06] MEDS: CITALOPRAM 20 MG TABLET. PO SCH (12:21)
[2019-09-06] MEDS: DIVALPROEX 125 MG CAP.SPRINK PO SCH ×2 (12:22→17:36)
[2019-09-06] MEDS: QUEtiapine 25 MG TABLET. PO SCH ×3 (12:22→17:37)
[2019-09-06 16:17] VITALS: BP 124/86
[2019-09-06] MEDS: traZODone 50 MG TABLET. PO SCH (17:36)
[2019-09-06] MEDS: traZODone 100 MG TABLET. PO SCH (21:05)
[2019-09-06] MEDS: MIRTAZAPINE 15 MG TABLET PO SCH (21:05)
--- NOTE | 2019-09-06 21:05 | PDOC ---
Exam Note: Jorge Note: Please also refer to the separate dictated note~for this date of service dictated separately.~Patient seen individually. Discussed the patient with Nursing staff reviewed the chart.~Reviewed interim history and current functioning. Reviewed vital signs,~Labs/ Radiology~and current medications noted below. Continue current treatment with the changes noted in the dictated addendum note Assessment: Vital Signs/I&O: Vital Signs Date Time Temp Pulse Resp B/P (MAP) Pulse Ox O2 Delivery O2 Flow Rate FiO2 09/06/19 16:17 98.6 78 18 124/86 (99) 96 09/06/19 06:41 Room Air I & O 09/05/19 09/05/19 09/06/19 15:00 23:00 07:00 Intake Total 600 ml 280 ml Balance 600 ml 280 ml Current Medications: Meds: Current Medications Medications (Trade) Dose Ordered Sig/Julissa Route PRN Reason Start Time Stop Time Status Last Admin Dose Admin Quetiapine Fumarate (SEROquel) 37.5 mg 0900,1300,1700 PO 09/06/19 09:00 09/06/19 17:37 Trazodone HCl (Desyrel) 12.5 mg 0900,1700 PO 09/06/19 17:00 09/06/19 17:36 I have reviewed the current psychotropics carefully including drug interactions. Risk benefit ratio favors no change other than as noted in my dictated progress note. Diagnosis: Problems: (1) Bipolar disorder, curr episode mixed, severe, with psychotic features (2) Anxiety disorder (3) Dementia in Alzheimer's disease with delusions (4) Dementia in Alzheimer's disease with depression (5) Dementia, vascular, with delusions (6) Dementia, vascular, with depression (7) Impulse control disorder PILO WOLFE MD Sep 06, 2019 21:05
--- NOTE | 2019-09-06 22:26 | PN ---
DATE: 09/05/2019 PSYCHIATRIC PROGRESS NOTE This late entry 09/05/2019 covers elements not covered in my initial note. SUBJECTIVE: I met with the patient evening of 09/05/2019. Per Don RN, patient slept 9-1/2 hours previous night. She takes her medications crushed. The day before, she was quite resistive with medications. Continues to be somewhat labile in her mood, wandering, hallucinating at times, delusional, making statements "I am not going to kill you." REVIEW OF SYSTEMS: Ambulation impaired, in wheelchair. No CV, , pulmonary, eye, ENT system symptoms on review. Reliability poor. MENTAL STATUS EXAM: Oriented to herself. Insight, judgment, recent and remote memory, attention, concentration, fund of knowledge poor, consistent with her diagnoses. IMPRESSION: Major neurocognitive disorder, Alzheimer, vascular with delusion, depression, behavioral disturbance; anxiety disorder, unspecified; impulse control disorder, unspecified. PLAN: Check a valproic acid level, adjust to reach therapeutic level. Increase Seroquel to 37.5 mg 3 times a day, which is an increment of an extra 12.5 mg a day. Rest unchanged for now. PILO WOLFE MD DR: GEORGE/dacia JOB#: [id number] / [id number]
[2019-09-07 06:22] VITALS: BP 104/68
[2019-09-07] MEDS: THIAMINE 100 MG TABLET. PO SCH (08:14)
[2019-09-07] MEDS: QUEtiapine 25 MG TABLET. PO SCH ×3 (08:14→17:33)
[2019-09-07] MEDS: CITALOPRAM 20 MG TABLET. PO SCH (08:14)
[2019-09-07] MEDS: traZODone 50 MG TABLET. PO SCH ×2 (08:14→17:34)
[2019-09-07] MEDS: DIVALPROEX 125 MG CAP.SPRINK PO SCH ×2 (08:15→17:33)
[2019-09-07 16:02] VITALS: BP 139/95
[2019-09-07] MEDS: MIRTAZAPINE 15 MG TABLET PO SCH (20:20)
[2019-09-07] MEDS: traZODone 100 MG TABLET. PO SCH (20:20)
--- NOTE | 2019-09-07 21:03 | PDOC ---
Exam Note: Jorge Note: Please also refer to the separate dictated note~for this date of service dictated separately.~Patient seen individually. Discussed the patient with Nursing staff reviewed the chart.~Reviewed interim history and current functioning. Reviewed vital signs,~Labs/ Radiology~and current medications noted below. Continue current treatment with the changes noted in the dictated addendum note Assessment: Vital Signs/I&O: Vital Signs Date Time Temp Pulse Resp B/P (MAP) Pulse Ox O2 Delivery O2 Flow Rate FiO2 09/07/19 16:02 97.2 80 20 139/95 (110) 98 09/06/19 06:41 Room Air I & O 09/06/19 09/06/19 09/07/19 15:00 23:00 07:00 Intake Total 600 ml 360 ml Balance 600 ml 360 ml Current Medications: I have reviewed the current psychotropics carefully including drug interactions. Risk benefit ratio favors no change other than as noted in my dictated progress note. Diagnosis: Problems: (1) Bipolar disorder, curr episode mixed, severe, with psychotic features (2) Anxiety disorder (3) Dementia in Alzheimer's disease with delusions (4) Dementia in Alzheimer's disease with depression (5) Dementia, vascular, with delusions (6) Dementia, vascular, with depression (7) Impulse control disorder PILO WOLFE MD Sep 07, 2019 21:03
[2019-09-07] MEDS: traZODone 50 MG TABLET. PO PRN (22:13)
[2019-09-08 05:43] VITALS: BP 98/58
[2019-09-08] MEDS: QUEtiapine 50 MG TABLET. PO SCH ×3 (08:27→17:00)
[2019-09-08] MEDS: CITALOPRAM 20 MG TABLET. PO SCH (08:27)
[2019-09-08] MEDS: traZODone 50 MG TABLET. PO SCH ×2 (08:27→17:00)
[2019-09-08] MEDS: THIAMINE 100 MG TABLET. PO SCH (08:27)
[2019-09-08] MEDS: DIVALPROEX 125 MG CAP.SPRINK PO SCH ×2 (08:27→12:15)
[2019-09-08 16:03] VITALS: BP 97/62
[2019-09-08] MEDS: MIRTAZAPINE 15 MG TABLET PO SCH (21:00)
[2019-09-08] MEDS: traZODone 100 MG TABLET. PO SCH (21:00)
--- NOTE | 2019-09-08 22:35 | PDOC ---
Exam Note: Jorge Note: Please also refer to the separate dictated note~for this date of service dictated separately.~Patient seen individually. Discussed the patient with Nursing staff reviewed the chart.~Reviewed interim history and current functioning. Reviewed vital signs,~Labs/ Radiology~and current medications noted below. Continue current treatment with the changes noted in the dictated addendum note Assessment: Vital Signs/I&O: Vital Signs Date Time Temp Pulse Resp B/P (MAP) Pulse Ox O2 Delivery O2 Flow Rate FiO2 09/08/19 16:03 98.6 83 18 97/62 (74) 96 09/06/19 06:41 Room Air I & O 09/07/19 09/07/19 09/08/19 15:00 23:00 07:00 Intake Total 360 ml 240 ml Balance 360 ml 240 ml Current Medications: Meds: Current Medications Medications (Trade) Dose Ordered Sig/Julissa Route PRN Reason Start Time Stop Time Status Last Admin Dose Admin Quetiapine Fumarate (SEROquel) 50 mg 0900,1300,1700 PO 09/08/19 09:00 09/08/19 12:15 I have reviewed the current psychotropics carefully including drug interactions. Risk benefit ratio favors no change other than as noted in my dictated progress note. Diagnosis: Problems: (1) Bipolar disorder, curr episode mixed, severe, with psychotic features (2) Dementia (3) Anxiety disorder (4) Dementia in Alzheimer's disease with delusions (5) Dementia in Alzheimer's disease with depression (6) Dementia, vascular, with delusions (7) Dementia, vascular, with depression (8) Impulse control disorder PILO WOLFE MD Sep 08, 2019 22:35
[2019-09-09 05:54] VITALS: BP 107/68
[2019-09-09 07:14] LABS: HEMATOCRIT 37.4 % (36.0-47.0); HEMOGLOBIN 11.9 g/dL (12.0-15.5); RED BLOOD COUNT 4.3 x10^6/uL (3.50-5.40); RED CELL DISTRIBUTION WIDTH 17.2 % (11.5-14.5); WHITE BLOOD COUNT 6.1 x10^3/uL (4.0-11.0)
[2019-09-09 07:32] LABS: ALBUMIN/GLOBULIN RATIO 0.7 (1.0-1.7); CALCIUM 8.9 mg/dL (8.5-10.1); CREATININE 0.7 mg/dL (0.6-1.0); GFR 82.3; POTASSIUM 3.7 mmol/L (3.5-5.1); TOTAL BILIRUBIN 0.2 mg/dL (0.2-1.0); TOTAL PROTEIN 7.5 g/dL (6.4-8.2)
[2019-09-09] MEDS: traZODone 50 MG TABLET. PO SCH ×2 (07:47→17:00)
[2019-09-09] MEDS: QUEtiapine 50 MG TABLET. PO SCH ×3 (07:47→17:00)
[2019-09-09] MEDS: DIVALPROEX 125 MG CAP.SPRINK PO SCH ×2 (07:47→17:00)
[2019-09-09] MEDS: CITALOPRAM 20 MG TABLET. PO SCH (07:47)
[2019-09-09] MEDS: THIAMINE 100 MG TABLET. PO SCH (07:47)
[2019-09-09 16:14] VITALS: BP 111/62
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
--- NOTE | 2019-09-09 20:53 | PDOC ---
Exam Note: Jorge Note: Please also refer to the separate dictated note~for this date of service dictated separately.~Patient seen individually. Discussed the patient with Nursing staff reviewed the chart.~Reviewed interim history and current functioning. Reviewed vital signs,~Labs/ Radiology~and current medications noted below. Continue current treatment with the changes noted in the dictated addendum note Assessment: Vital Signs/I&O: Vital Signs Date Time Temp Pulse Resp B/P (MAP) Pulse Ox O2 Delivery O2 Flow Rate FiO2 09/09/19 16:14 97.2 89 18 111/62 (78) 96 09/06/19 06:41 Room Air I & O 09/08/19 09/08/19 09/09/19 15:00 23:00 07:00 Intake Total 720 ml Balance 720 ml Labs: Laboratory Tests Test 09/09/19 07:00 White Blood Count 6.1 x10^3/uL (4.0-11.0) Red Blood Count 4.30 x10^6/uL (3.50-5.40) Hemoglobin 11.9 g/dL (12.0-15.5) L Hematocrit 37.4 % (36.0-47.0) Mean Corpuscular Volume 87 fL (79-100) Mean Corpuscular Hemoglobin 28 pg (25-35) Mean Corpuscular Hemoglobin Concent 32 g/dL (31-37) Red Cell Distribution Width 17.2 % (11.5-14.5) H Platelet Count 381 x10^3/uL (140-400) Sodium Level 143 mmol/L (136-145) Potassium Level 3.7 mmol/L (3.5-5.1) Chloride Level 107 mmol/L (98-107) Carbon Dioxide Level 26 mmol/L (21-32) Anion Gap 10 (6-14) Blood Urea Nitrogen 14 mg/dL (7-20) Creatinine 0.7 mg/dL (0.6-1.0) Estimated GFR (Cockcroft-Gault) 82.3 BUN/Creatinine Ratio 20 (6-20) Glucose Level 122 mg/dL (70-99) H Lactic Acid Level 1.6 mmol/L (0.4-2.0) Calcium Level 8.9 mg/dL (8.5-10.1) Total Bilirubin 0.2 mg/dL (0.2-1.0) Aspartate Amino Transferase (AST) 20 U/L (15-37) Alanine Aminotransferase (ALT) 15 U/L (14-59) Alkaline Phosphatase 88 U/L (46-116) Total Protein 7.5 g/dL (6.4-8.2) Albumin 3.0 g/dL (3.4-5.0) L Albumin/Globulin Ratio 0.7 (1.0-1.7) L Current Medications: I have reviewed the current psychotropics carefully including drug interactions. Risk benefit ratio favors no change other than as noted in my dictated progress note. Diagnosis: Problems: (1) Bipolar disorder, curr episode mixed, severe, with psychotic features (2) Anxiety disorder (3) Dementia in Alzheimer's disease with delusions (4) Dementia in Alzheimer's disease with depression (5) Dementia, vascular, with delusions (6) Dementia, vascular, with depression (7) Impulse control disorder PILO WOLFE MD Sep 09, 2019 20:53
[2019-09-09] MEDS: traZODone 100 MG TABLET. PO SCH (21:05)
[2019-09-09] MEDS: MIRTAZAPINE 15 MG TABLET PO SCH (21:05)
--- NOTE | 2019-09-10 00:24 | PN ---
DATE: 09/07/2019 PSYCHIATRIC PROGRESS NOTE This late entry, 09/07, covers elements not covered in my initial note. SUBJECTIVE: I met with the patient evening of 09/07. Per REGINO Ochoa, the patient slept 3-1/2 hours previous night. Previous night, she was redirectable, but during the day she remains anxious, restless, constantly moving in and out of other's rooms in her wheelchair. She calls out all night, takes her meds in chocolate pudding, rambling in her speech and then agitated, yelling. REVIEW OF SYSTEMS: Ambulation impaired, in wheelchair. No CV, , pulmonary, eye, ENT system symptoms on review. Reliability poor. MENTAL STATUS EXAM: Oriented to herself. Insight, judgment, recent and remote memory, attention, concentration, fund of knowledge poor, consistent with her diagnosis mentioned in my initial note. PLAN: Increase Seroquel from 37.5 mg t.i.d. to 50 mg t.i.d. Rest psychotropics unchanged. Reviewed carefully. PILO WOLFE MD DR: GEORGE/dacia JOB#: [id number] / [id number]
[2019-09-10 06:08] VITALS: BP 138/96
[2019-09-10] MEDS: THIAMINE 100 MG TABLET. PO SCH (09:02)
[2019-09-10] MEDS: CITALOPRAM 20 MG TABLET. PO SCH (09:02)
[2019-09-10] MEDS: QUEtiapine 50 MG TABLET. PO SCH ×3 (09:02→17:19)
[2019-09-10] MEDS: traZODone 50 MG TABLET. PO SCH ×2 (09:02→17:00)
[2019-09-10] MEDS: DIVALPROEX 125 MG CAP.SPRINK PO SCH ×2 (09:02→17:19)
[2019-09-10 15:18] VITALS: BP 102/66
[2019-09-10] MEDS: MIRTAZAPINE 15 MG TABLET PO SCH (20:57)
[2019-09-10] MEDS: traZODone 100 MG TABLET. PO SCH (20:57)
--- NOTE | 2019-09-10 21:38 | PDOC ---
Exam Note: Jorge Note: Please also refer to the separate dictated note~for this date of service dictated separately.~Patient seen individually. Discussed the patient with Nursing staff reviewed the chart.~Reviewed interim history and current functioning. Reviewed vital signs,~Labs/ Radiology~and current medications noted below. Continue current treatment with the changes noted in the dictated addendum note Assessment: Vital Signs/I&O: Vital Signs Date Time Temp Pulse Resp B/P (MAP) Pulse Ox O2 Delivery O2 Flow Rate FiO2 09/10/19 15:18 98.4 83 18 102/66 (78) 96 09/06/19 06:41 Room Air I & O 09/09/19 09/09/19 09/10/19 15:00 23:00 07:00 Intake Total 240 ml 440 ml Balance 240 ml 440 ml Current Medications: I have reviewed the current psychotropics carefully including drug interactions. Risk benefit ratio favors no change other than as noted in my dictated progress note. Diagnosis: Problems: (1) Bipolar disorder, curr episode mixed, severe, with psychotic features (2) Anxiety disorder (3) Dementia in Alzheimer's disease with delusions (4) Dementia in Alzheimer's disease with depression (5) Dementia, vascular, with delusions (6) Dementia, vascular, with depression (7) Impulse control disorder PILO WOLFE MD Sep 10, 2019 21:38
--- NOTE | 2019-09-11 01:34 | PN ---
DATE: 09/08/2019 PSYCHIATRIC PROGRESS NOTE This late entry, 09/08/2019, covers elements not covered in my initial note. SUBJECTIVE: I met with the patient in the evening. Per REGINO Romero, the patient slept 6-1/2 hours previous night. She is angry, irritable, anxious in the day room, received Zyprexa at 1500. REVIEW OF SYSTEMS: Ambulation impaired, in wheelchair. No CV, , pulmonary, eye, ENT system symptoms on review. Reliability poor. MENTAL STATUS EXAM: Oriented to herself. Insight, judgment, recent and remote memory, attention, concentration, fund of knowledge poor, consistent with her diagnosis mentioned in my initial note. PLAN: No change from initial note. MAN Silas WOLFE MD DR: GEORGE/dacia JOB#: [id number] / [id number]
--- NOTE | 2019-09-11 01:49 | PN ---
DATE: 09/09/2019 PSYCHIATRIC PROGRESS NOTE This late entry, 09/09, covers elements not covered in my initial note. SUBJECTIVE: I met with the patient evening of 09/09. The patient slept 10 hours previous night. She has been somewhat sedated during the day. Labs were unremarkable. REVIEW OF SYSTEMS: Ambulation impaired, in wheelchair. No CV, , pulmonary, eye system symptoms on review. MENTAL STATUS EXAM: Oriented to herself. Insight, judgment, recent and remote memory, attention, concentration, fund of knowledge poor, consistent with her diagnosis mentioned in my initial note. PLAN: No change from initial note. MAN Silas WOLFE MD DR: GEORGE/dacia JOB#: [id number] / [id number]
[2019-09-11 05:38] VITALS: BP 97/66
[2019-09-11] MEDS: CHOLECALCIFEROL (VITAMIN D3) 50,000 UNIT CAPSULE PO SCH (08:34)
[2019-09-11] MEDS: DIVALPROEX 125 MG CAP.SPRINK PO SCH ×2 (08:34→17:46)
[2019-09-11] MEDS: THIAMINE 100 MG TABLET. PO SCH (08:34)
[2019-09-11] MEDS: traZODone 50 MG TABLET. PO SCH ×3 (08:34→23:42)
[2019-09-11] MEDS: CITALOPRAM 20 MG TABLET. PO SCH (08:34)
[2019-09-11] MEDS: QUEtiapine 50 MG TABLET. PO SCH ×3 (08:34→17:46)
[2019-09-11 15:58] VITALS: BP 97/57
[2019-09-11 17:08] LABS: BILIRUBIN,URINE NEG (NEG); CLARITY,URINE HAZY; COLOR,URINE YELLOW; GLUCOSE,URINE NEG (NEG)
[2019-09-11 17:09] LABS: BACTERIA,URINE 0 /HPF (0-FEW); NITRITE,URINE NEG (NEG); RBC,URINE 0 /HPF (0-2); SQUAMOUS EPITHELIAL CELL,UR OCC /LPF; UROBILINOGEN,URINE 0.2 mg/dL (0.2 mg/dL)
[2019-09-11] MEDS: traZODone 100 MG TABLET. PO SCH (19:48)
[2019-09-11] MEDS: MIRTAZAPINE 15 MG TABLET PO SCH (19:48)
--- NOTE | 2019-09-11 21:54 | PDOC ---
Exam Note: Jorge Note: Please also refer to the separate dictated note~for this date of service dictated separately.~Patient seen individually. Discussed the patient with Nursing staff reviewed the chart.~Reviewed interim history and current functioning. Reviewed vital signs,~Labs/ Radiology~and current medications noted below. Continue current treatment with the changes noted in the dictated addendum note Assessment: Vital Signs/I&O: Vital Signs Date Time Temp Pulse Resp B/P (MAP) Pulse Ox O2 Delivery O2 Flow Rate FiO2 09/11/19 15:58 97.8 60 20 97/57 (70) 97 09/06/19 06:41 Room Air I & O 09/10/19 09/10/19 09/11/19 15:00 23:00 07:00 Intake Total 360 ml 480 ml Balance 360 ml 480 ml Labs: Laboratory Tests Test 09/11/19 16:20 Urine Collection Type Unknown Urine Color Yellow Urine Clarity Hazy Urine pH 7.0 Urine Specific [place] 1.025 Urine Protein Neg (NEG-TRACE) Urine Glucose (UA) Neg mg/dL (NEG) Urine Ketones (Stick) Neg mg/dL (NEG) Urine Blood Neg (NEG) Urine Nitrite Neg (NEG) Urine Bilirubin Neg (NEG) Urine Urobilinogen Dipstick 0.2 mg/dL (0.2 mg/dL) Urine Leukocyte Esterase Neg (NEG) Urine RBC 0 /HPF (0-2) Urine WBC 1-4 /HPF (0-4) Urine Squamous Epithelial Cells Occ /LPF Urine Bacteria 0 /HPF (0-FEW) Urine Mucus Slight /LPF Current Medications: I have reviewed the current psychotropics carefully including drug interactions. Risk benefit ratio favors no change other than as noted in my dictated progress note. Diagnosis: Problems: (1) Bipolar disorder, curr episode mixed, severe, with psychotic features (2) Anxiety disorder (3) Dementia in Alzheimer's disease with delusions (4) Dementia in Alzheimer's disease with depression (5) Dementia, vascular, with delusions (6) Dementia, vascular, with depression (7) Impulse control disorder PILO WOLFE MD Sep 11, 2019 21:54
--- NOTE | 2019-09-11 23:31 | PN ---
DATE: 09/10/2019 PSYCHIATRIC PROGRESS NOTE This late entry 09/10/2019 covers the elements not covered in my initial note. SUBJECTIVE: I met with the patient in the evening of 09/10/2019. Per REGINO Pérez, the patient slept 1-1/2 hours previous night. Previous evening, she was screaming, talking to herself, resistive with medications, took her meds in pudding, irritable. We will check a UA, make sure she does not have a UTI, worsening her agitation. REVIEW OF SYSTEMS: Ambulation impaired, in wheelchair. No CV, , pulmonary, eye, ENT system symptoms on review. Reliability is poor. MENTAL STATUS EXAM: Oriented to herself. Insight, judgment, recent and remote memory, attention, concentration, fund of knowledge poor, consistent with her diagnoses. IMPRESSION: Major neurocognitive disorder, Alzheimer, vascular with delusion, depression, behavioral disturbance. Rest unchanged. PLAN: No change from initial note. Maintain Celexa, Remeron, Seroquel, trazodone, Depakote for now. She is less sedated with the daytime trazodone and we will continue with this for now. PILO WOLFE MD DR: GEORGE/dacia JOB#: [id number] / [id number]
[2019-09-12 06:31] VITALS: BP 108/73
[2019-09-12] MEDS: CITALOPRAM 20 MG TABLET. PO SCH (08:37)
[2019-09-12] MEDS: THIAMINE 100 MG TABLET. PO SCH (08:37)
[2019-09-12] MEDS: DIVALPROEX 125 MG CAP.SPRINK PO SCH ×2 (08:37→18:12)
[2019-09-12] MEDS: QUEtiapine 50 MG TABLET. PO SCH ×3 (08:38→18:12)
[2019-09-12 15:37] VITALS: BP 109/68
[2019-09-12] MEDS: traZODone 50 MG TABLET. PO SCH (18:12)
[2019-09-12] MEDS: MIRTAZAPINE 15 MG TABLET PO SCH (19:30)
[2019-09-12] MEDS: traZODone 100 MG TABLET. PO SCH (19:30)
--- NOTE | 2019-09-12 21:54 | PDOC ---
Exam Note: Jorge Note: Please also refer to the separate dictated note~for this date of service dictated separately.~Patient seen individually. Discussed the patient with Nursing staff reviewed the chart.~Reviewed interim history and current functioning. Reviewed vital signs,~Labs/ Radiology~and current medications noted below. Continue current treatment with the changes noted in the dictated addendum note Assessment: Vital Signs/I&O: Vital Signs Date Time Temp Pulse Resp B/P (MAP) Pulse Ox O2 Delivery O2 Flow Rate FiO2 09/12/19 15:37 98.0 74 16 109/68 (82) 97 I & O 09/11/19 09/11/19 09/12/19 15:00 23:00 07:00 Intake Total 840 ml 120 ml Balance 840 ml 120 ml Current Medications: I have reviewed the current psychotropics carefully including drug interactions. Risk benefit ratio favors no change other than as noted in my dictated progress note. Diagnosis: Problems: (1) Bipolar disorder, curr episode mixed, severe, with psychotic features (2) Anxiety disorder (3) Dementia in Alzheimer's disease with delusions (4) Dementia in Alzheimer's disease with depression (5) Dementia, vascular, with delusions (6) Dementia, vascular, with depression (7) Impulse control disorder PILO WOLFE MD Sep 12, 2019 21:54
--- NOTE | 2019-09-13 04:35 | PN ---
DATE: 09/11/2019 PSYCHIATRIC PROGRESS NOTE This late entry 09/11/2019 covers elements not covered in my initial note. SUBJECTIVE: I met with the patient evening of 09/11/2019. Per REGINO Pérez, the patient slept 7-1/2 hours previous night. She has been pleasant, at times resistive to medications, compliant with encouragement. Later in the afternoon, she was agitated and previous night, she was screaming all night, following one of the other patients around the unit. We did repeat a UA, awaiting to make sure that she does not have a UTI complicating her agitation. REVIEW OF SYSTEMS: Ambulation impaired, in wheelchair. No CV, , pulmonary, eye, ENT system symptoms on review. Reliability poor. MENTAL STATUS EXAM: Oriented to herself. Insight, judgment, recent and remote memory, attention, concentration, fund of knowledge poor, consistent with her diagnosis mentioned in my initial note. IMPRESSION: Major neurocognitive disorder, Alzheimer, vascular with depression, delusion, behavioral disturbance; anxiety disorder, unspecified; impulse control disorder, unspecified. Rest unchanged. PLAN: No change from initial note. Await UA, C and S and then decide further. IPLO WOLFE MD DR: GEORGE/dacia JOB#: [id number] / [id number]
[2019-09-13 05:53] VITALS: BP 95/58
[2019-09-13] MEDS: THIAMINE 100 MG TABLET. PO SCH (08:13)
[2019-09-13] MEDS: DIVALPROEX 125 MG CAP.SPRINK PO SCH ×2 (08:13→17:16)
[2019-09-13] MEDS: CITALOPRAM 20 MG TABLET. PO SCH (08:13)
[2019-09-13] MEDS: QUEtiapine 50 MG TABLET. PO SCH ×3 (08:13→17:16)
[2019-09-13] MEDS: traZODone 50 MG TABLET. PO SCH ×2 (08:14→17:16)
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
[2019-09-13 15:53] VITALS: BP 109/69
[2019-09-13] MEDS: traZODone 100 MG TABLET. PO SCH (19:33)
[2019-09-13] MEDS: MIRTAZAPINE 15 MG TABLET PO SCH (19:33)
--- NOTE | 2019-09-13 21:26 | PDOC ---
Exam Note: Jorge Note: Please also refer to the separate dictated note~for this date of service dictated separately.~Patient seen individually. Discussed the patient with Nursing staff reviewed the chart.~Reviewed interim history and current functioning. Reviewed vital signs,~Labs/ Radiology~and current medications noted below. Continue current treatment with the changes noted in the dictated addendum note Assessment: Vital Signs/I&O: Vital Signs Date Time Temp Pulse Resp B/P (MAP) Pulse Ox O2 Delivery O2 Flow Rate FiO2 09/13/19 15:53 97.8 87 20 109/69 (82) 98 Room Air I & O 09/12/19 09/12/19 09/13/19 15:00 23:00 07:00 Intake Total 840 ml 480 ml Balance 840 ml 480 ml Current Medications: I have reviewed the current psychotropics carefully including drug interactions. Risk benefit ratio favors no change other than as noted in my dictated progress note. Diagnosis: Problems: (1) Bipolar disorder, curr episode mixed, severe, with psychotic features (2) Anxiety disorder (3) Dementia in Alzheimer's disease with delusions (4) Dementia in Alzheimer's disease with depression (5) Dementia, vascular, with delusions (6) Dementia, vascular, with depression (7) Impulse control disorder PILO WOLFE MD Sep 13, 2019 21:26
[2019-09-14 06:26] VITALS: BP 106/66
[2019-09-14] MEDS: DIVALPROEX 125 MG CAP.SPRINK PO SCH ×2 (08:27→17:00)
[2019-09-14] MEDS: QUEtiapine 50 MG TABLET. PO SCH ×3 (08:27→17:00)
[2019-09-14] MEDS: THIAMINE 100 MG TABLET. PO SCH (08:27)
[2019-09-14] MEDS: traZODone 50 MG TABLET. PO SCH ×2 (08:27→17:00)
--- NOTE | 2019-09-14 10:22 | PN ---
DATE: 09/12/2019 PSYCHIATRIC PROGRESS NOTE This late entry 09/12/2019 covers the elements not covered in my initial note. SUBJECTIVE: I met with the patient in the evening of 09/12/2019. Per REGINO Lau, the patient slept 2 hours previous night with trazodone and Zyprexa. She is a little more pleasant, takes her medications crushed. She did have to go to the quiet hallway on the west side because she gets overstimulated with noises, then she was calmer after this. She was tired in the day room. REVIEW OF SYSTEMS: Ambulation impaired with wheelchair. No CV, , pulmonary, eye, ENT system symptoms on review. Reliability poor. MENTAL STATUS EXAM: Oriented to herself. Insight, judgment, recent and remote memory, attention, concentration, fund of knowledge poor, consistent with her diagnosis mentioned in my initial note. PLAN: No change from initial note for now. We will follow labs level, adjust Depakote thereafter. May consider changing Celexa to Luvox, if OCD symptoms are significant. MAN Silas WOLFE MD DR: GEORGE/dacia JOB#: [id number] / [id number]
[2019-09-14 15:38] VITALS: BP 112/60
--- NOTE | 2019-09-14 19:27 | PN ---
DATE: 09/13/2019 PSYCHIATRIC PROGRESS NOTE This late entry 09/13/2019 covers elements not covered in my initial note. SUBJECTIVE: I met with the patient evening of 09/13/2019 and staffed at a treatment team meeting with the entire team in the morning. The patient's daughter, Jo-Ann, attended the treatment team meeting. The patient is sleeping 5-6 hours. Appetite 50%. She gets agitated at another patient on the unit who she is known from the past. She has episodes of yelling, generally a little better, had to go to the quiet room. REVIEW OF SYSTEMS: Ambulation impaired, in wheelchair. No CV, , pulmonary, eye, ENT system symptoms on review. Reliability poor. MENTAL STATUS EXAM: Oriented to herself. Insight, judgment, recent and remote memory, attention, concentration, fund of knowledge poor, consistent with her diagnosis mentioned in my initial note. IMPRESSION: Major neurocognitive disorder, Alzheimer, vascular with delusion, depression, behavioral disturbance; anxiety disorder, unspecified; impulse control disorder, unspecified. PLAN: Change Celexa to Luvox 25 mg a day for 3 days, then 50 mg a day. Continue Seroquel along with Depakote, trazodone at current dosage. Adjust as clinically indicated. Valproic acid level therapeutic at 57. PILO WOLFE MD DR: GEORGE/dacia JOB#: [id number] / [id number]
[2019-09-14] MEDS: MIRTAZAPINE 15 MG TABLET PO SCH (19:51)
[2019-09-14] MEDS: traZODone 100 MG TABLET. PO SCH (19:51)
[2019-09-14] MEDS: traZODone 50 MG TABLET. PO PRN (20:49)
--- NOTE | 2019-09-14 21:27 | PDOC ---
Exam Note: Jorge Note: Please also refer to the separate dictated note~for this date of service dictated separately.~Patient seen individually. Discussed the patient with Nursing staff reviewed the chart.~Reviewed interim history and current functioning. Reviewed vital signs,~Labs/ Radiology~and current medications noted below. Continue current treatment with the changes noted in the dictated addendum note Assessment: Vital Signs/I&O: Vital Signs Date Time Temp Pulse Resp B/P (MAP) Pulse Ox O2 Delivery O2 Flow Rate FiO2 09/14/19 15:38 97.6 88 20 112/60 (77) 97 09/13/19 15:53 Room Air I & O 09/13/19 09/13/19 09/14/19 15:00 23:00 07:00 Intake Total 480 ml 240 ml Balance 480 ml 240 ml Current Medications: Meds: Current Medications Medications (Trade) Dose Ordered Sig/Julissa Route PRN Reason Start Time Stop Time Status Last Admin Dose Admin Fluvoxamine Maleate (Luvox) 25 mg DAILY PO 09/14/19 09:00 09/16/19 11:00 09/14/19 08:27 I have reviewed the current psychotropics carefully including drug interactions. Risk benefit ratio favors no change other than as noted in my dictated progress note. Diagnosis: Problems: (1) Bipolar disorder, curr episode mixed, severe, with psychotic features (2) Anxiety disorder (3) Dementia in Alzheimer's disease with delusions (4) Dementia in Alzheimer's disease with depression (5) Dementia, vascular, with delusions (6) Dementia, vascular, with depression (7) Impulse control disorder PILO WOLFE MD Sep 14, 2019 21:27
[2019-09-15 05:19] VITALS: BP 126/81
[2019-09-15] MEDS: THIAMINE 100 MG TABLET. PO SCH (08:03)
[2019-09-15] MEDS: DIVALPROEX 125 MG CAP.SPRINK PO SCH ×2 (08:03→17:33)
[2019-09-15] MEDS: QUEtiapine 50 MG TABLET. PO SCH ×3 (08:04→17:32)
[2019-09-15] MEDS: traZODone 50 MG TABLET. PO SCH ×2 (08:04→17:33)
[2019-09-15 10:24] LABS: BASO % 0 % (0-3); EOS # 0.2 x10^3/uL (0.0-0.7); EOS % 6 % (0-3); HEMATOCRIT 36.5 % (36.0-47.0); HEMOGLOBIN 11.6 g/dL (12.0-15.5); LYMPH # 1.1 x10^3/uL (1.0-4.8); LYMPH % 26 % (24-48); MEAN CORPUSCULAR HEMOGLOBIN 28 pg (25-35); MEAN CORPUSCULAR HGB CONC 32 g/dL (31-37); MEAN CORPUSCULAR VOLUME 88 fL (79-100); MONO # 0.5 x10^3/uL (0.0-1.1); MONO % 11 % (0-9); NEUT # 2.4 x10^3uL (1.8-7.7); NEUT % 57 % (31-73); PLATELET COUNT 307 x10^3/uL (140-400); RED BLOOD COUNT 4.15 x10^6/uL (3.50-5.40); RED CELL DISTRIBUTION WIDTH 17.1 % (11.5-14.5); WHITE BLOOD COUNT 4.3 x10^3/uL (4.0-11.0)
[2019-09-15 10:40] LABS: ALBUMIN 3.1 g/dL (3.4-5.0); ALBUMIN/GLOBULIN RATIO 0.7 (1.0-1.7); CREATININE 0.6 mg/dL (0.6-1.0); GFR 98.3; POTASSIUM 3.6 mmol/L (3.5-5.1); TOTAL BILIRUBIN 0.1 mg/dL (0.2-1.0); TOTAL PROTEIN 7.8 g/dL (6.4-8.2)
[2019-09-15 15:16] VITALS: BP 111/70
[2019-09-15] MEDS: MIRTAZAPINE 15 MG TABLET PO SCH (20:11)
[2019-09-15] MEDS: traZODone 100 MG TABLET. PO SCH (20:11)
[2019-09-15] MEDS: traZODone 50 MG TABLET. PO PRN (23:04)
--- NOTE | 2019-09-16 00:19 | PN ---
DATE: 09/15/2019 SUBJECTIVE: The patient was seen today, met with the staff, chart reviewed and also covering for Dr. Freeman. The patient currently not exhibiting any major behavior problems except for decreased sleep, sometimes does not sleep at all at night. The patient is currently complaining of feeling sleepy. Staff reports no other medical issues. OBSERVATION: VITAL SIGNS: Temperature 98.3, blood pressure 126/81, pulse 82, respirations 20, O2 sat 97%. The patient apparently did not sleep at all last night. MEDICATIONS: Reviewed. Currently on fluvoxamine 75 mg daily, Seroquel 50 mg 3 times a day, trazodone 12.5 mg twice a day, 100 mg at night, Depakote 250 mg b.i.d., mirtazapine 15 mg at night. LABORATORY DATA: The patient's lab reviewed, hemoglobin 11.6, glucose 130. ASSESSMENT: Major neurocognitive disorder, Alzheimer's, vascular with delusions, depression and behavioral disturbances and bipolar disorder, mixed. PLAN: To continue with the treatment. LENGTH OF STAY: 5-7 days. KATHRYN HUDSON MD DR: SHON/dacia JOB#: [id number] / [id number]
[2019-09-16 05:10] VITALS: BP 110/78
[2019-09-16] MEDS: THIAMINE 100 MG TABLET. PO SCH (09:25)
[2019-09-16] MEDS: traZODone 50 MG TABLET. PO SCH ×2 (09:25→17:00)
[2019-09-16] MEDS: QUEtiapine 50 MG TABLET. PO SCH ×3 (09:25→17:00)
[2019-09-16] MEDS: DIVALPROEX 125 MG CAP.SPRINK PO SCH ×2 (09:26→17:00)
--- NOTE | 2019-09-16 13:46 | PN ---
DATE: 09/16/2019 SUBJECTIVE: The patient was seen today, met with the staff, chart reviewed. The patient continues to have problems with increased anxiety, restlessness, confusion, disorganized thinking and not sleeping. OBSERVATION: VITAL SIGNS: Temperature 97.8, blood pressure 110/78, pulse 76, respirations 20, O2 sat 93%. The patient slept only about 3/4 of an hour last night. The patient apparently has periods where she is awake for several days, then sleeps for a couple of days continuously, not wanting to get up. MEDICATIONS: The patient's current medications include fluvoxamine 75 mg daily, Seroquel 50 mg t.i.d. p.o., trazodone 12.5 mg b.i.d., Depakote 250 mg b.i.d. and mirtazapine 15 mg at night, also trazodone 100 mg at night. The patient is not having any side effects. LABORATORY DATA: The patient's lab reviewed. ASSESSMENT: 1. Major neurocognitive disorder, Alzheimer's, vascular with delusions, depression and behavioral disturbances. 2. Bipolar disorder, mixed. PLAN: To continue with the treatment. LENGTH OF STAY: 5-7 days. KATHRYN HUDSON MD DR: SHON/dacia JOB#: [id number] / [id number]
[2019-09-16 15:22] VITALS: BP 118/76
[2019-09-16] MEDS: traZODone 100 MG TABLET. PO SCH (19:57)
[2019-09-16] MEDS: MIRTAZAPINE 15 MG TABLET PO SCH (19:57)
[2019-09-17 06:42] VITALS: BP 105/69
[2019-09-17] MEDS: QUEtiapine 50 MG TABLET. PO SCH ×3 (11:25→17:17)
[2019-09-17] MEDS: THIAMINE 100 MG TABLET. PO SCH (11:25)
[2019-09-17] MEDS: DIVALPROEX 125 MG CAP.SPRINK PO SCH ×2 (11:25→17:18)
[2019-09-17] MEDS: traZODone 50 MG TABLET. PO SCH ×2 (11:25→17:18)
[2019-09-17 15:26] VITALS: BP 105/68
[2019-09-17] MEDS: traZODone 100 MG TABLET. PO SCH (20:10)
[2019-09-17] MEDS: MIRTAZAPINE 15 MG TABLET PO SCH (20:10)
--- NOTE | 2019-09-17 21:24 | PDOC ---
Exam Note: Jorge Note: Please also refer to the separate dictated note~for this date of service dictated separately.~Patient seen individually. Discussed the patient with Nursing staff reviewed the chart.~Reviewed interim history and current functioning. Reviewed vital signs,~Labs/ Radiology~and current medications noted below. Continue current treatment with the changes noted in the dictated addendum note Assessment: Vital Signs/I&O: Vital Signs Date Time Temp Pulse Resp B/P (MAP) Pulse Ox O2 Delivery O2 Flow Rate FiO2 09/17/19 15:26 98.7 94 20 105/68 (80) 95 09/15/19 05:19 Room Air I & O 09/16/19 09/16/19 09/17/19 15:00 23:00 07:00 Intake Total 600 ml 360 ml Balance 600 ml 360 ml Current Medications: Meds: Current Medications Medications (Trade) Dose Ordered Sig/Julissa Route PRN Reason Start Time Stop Time Status Last Admin Dose Admin Fluvoxamine Maleate (Luvox) 50 mg DAILY PO 09/17/19 09:00 09/17/19 11:24 I have reviewed the current psychotropics carefully including drug interactions. Risk benefit ratio favors no change other than as noted in my dictated progress note. Diagnosis: Problems: (1) Bipolar disorder, curr episode mixed, severe, with psychotic features (2) Anxiety disorder (3) Dementia in Alzheimer's disease with delusions (4) Dementia in Alzheimer's disease with depression (5) Dementia, vascular, with delusions (6) Dementia, vascular, with depression (7) Impulse control disorder PILO WOLFE MD Sep 17, 2019 21:24
[2019-09-18 04:59] VITALS: BP 107/63
--- NOTE | 2019-09-18 05:05 | PN ---
DATE: 09/14/2019 PSYCHIATRIC PROGRESS NOTE This late entry 09/14/2019 covers elements not covered in my initial note. SUBJECTIVE: I met with the patient evening of 09/14/2019. Per REGINO Benavides, the patient slept 7-3/4 hours previous night. She did well in the morning, quite agitated in the afternoon, received Zyprexa p.r.n. We will check labs morning of 09/15/2019 to reassess. REVIEW OF SYSTEMS: Ambulation impaired, in wheelchair. No CV, , pulmonary, eye, ENT system symptoms on review. Reliability poor. MENTAL STATUS EXAM: Oriented to herself. Insight, judgment, recent and remote memory, attention, concentration, fund of knowledge poor, consistent with her diagnosis mentioned in my initial note. PLAN: No change from initial note. MAN Silas WOLFE MD DR: GEORGE/dacia JOB#: [id number] / [id number]
[2019-09-18] MEDS: CHOLECALCIFEROL (VITAMIN D3) 50,000 UNIT CAPSULE PO SCH (08:47)
[2019-09-18] MEDS: THIAMINE 100 MG TABLET. PO SCH (08:47)
[2019-09-18] MEDS: DIVALPROEX 125 MG CAP.SPRINK PO SCH ×2 (08:47→16:52)
[2019-09-18] MEDS: QUEtiapine 50 MG TABLET. PO SCH ×3 (08:47→16:52)
[2019-09-18] MEDS: traZODone 50 MG TABLET. PO SCH ×2 (08:47→16:52)
[2019-09-18 15:41] VITALS: BP 115/65
[2019-09-18] MEDS: MIRTAZAPINE 15 MG TABLET PO SCH (19:51)
[2019-09-18] MEDS: traZODone 100 MG TABLET. PO SCH (19:51)
--- NOTE | 2019-09-18 22:01 | PDOC ---
Exam Note: Jorge Note: Please also refer to the separate dictated note~for this date of service dictated separately.~Patient seen individually. Discussed the patient with Nursing staff reviewed the chart.~Reviewed interim history and current functioning. Reviewed vital signs,~Labs/ Radiology~and current medications noted below. Continue current treatment with the changes noted in the dictated addendum note Assessment: Vital Signs/I&O: Vital Signs Date Time Temp Pulse Resp B/P (MAP) Pulse Ox O2 Delivery O2 Flow Rate FiO2 09/18/19 15:41 98.0 97 20 115/65 (82) 95 09/15/19 05:19 Room Air I & O 09/17/19 09/17/19 09/18/19 15:00 23:00 07:00 Intake Total 360 ml 540 ml Balance 360 ml 540 ml Current Medications: I have reviewed the current psychotropics carefully including drug interactions. Risk benefit ratio favors no change other than as noted in my dictated progress note. Diagnosis: Problems: (1) Bipolar disorder, curr episode mixed, severe, with psychotic features (2) Anxiety disorder (3) Dementia in Alzheimer's disease with delusions (4) Dementia in Alzheimer's disease with depression (5) Dementia, vascular, with delusions (6) Dementia, vascular, with depression (7) Impulse control disorder PILO WOLFE MD Sep 18, 2019 22:01
--- NOTE | 2019-09-19 00:56 | PN ---
DATE: 09/18/2019 PSYCHIATRIC PROGRESS NOTE This late entry 09/17/2019 covers the elements not covered in my initial note. SUBJECTIVE: I met with the patient evening of 09/17/2019. The patient slept 9-1/4 hours previous night, temperature 97.5, BP 105/69, pulse 73 per minute. Overall, the patient remains confused, up and down the hallway in her wheelchair, redirectable. REVIEW OF SYSTEMS: No CV, , pulmonary, eye system symptoms on review. Reliability poor. MENTAL STATUS EXAM: Oriented to herself. Insight, judgment, recent and remote memory, attention, concentration, fund of knowledge poor, consistent with her diagnoses. IMPRESSION: Major neurocognitive disorder, Alzheimer, vascular, possibly due to alcohol with delusion, depression, behavioral disturbance, schizoaffective disorder, bipolar type, mixed with psychotic features. Rest unchanged. PLAN: Continue psychotropics from initial note including Remeron, Seroquel, Depakote, and Luvox and the latter has been increased to 50 mg a day. We will adjust further as clinically indicated. MAN Silas WOLFE MD DR: GEORGE/dacia JOB#: [id number] / [id number]
[2019-09-19 06:41] VITALS: BP 115/76
[2019-09-19] MEDS: traZODone 50 MG TABLET. PO SCH ×2 (08:15→16:38)
[2019-09-19] MEDS: DIVALPROEX 125 MG CAP.SPRINK PO SCH ×2 (08:15→16:38)
[2019-09-19] MEDS: THIAMINE 100 MG TABLET. PO SCH (08:15)
[2019-09-19] MEDS: QUEtiapine 50 MG TABLET. PO SCH ×3 (08:15→16:38)
[2019-09-19 15:33] VITALS: BP 104/70
[2019-09-19] MEDS: traZODone 100 MG TABLET. PO SCH (20:07)
[2019-09-19] MEDS: MIRTAZAPINE 15 MG TABLET PO SCH (20:07)
--- NOTE | 2019-09-19 20:53 | PN ---
DATE: 09/18/2019 PSYCHIATRIC PROGRESS NOTE This late entry 09/18/2019 covers elements not covered in my initial note. SUBJECTIVE: I met with the patient evening of 09/18/2019. Per REGINO Lau, the patient slept 6 hours previous night. She takes her medications crushed in pudding. Half hour after breakfast, she was quite agitated with marked mood lability, anxious, received Zyprexa, then did better. REVIEW OF SYSTEMS: Ambulation impaired, in wheelchair. No CV, , pulmonary, eye, ENT system symptoms on review. Reliability poor. MENTAL STATUS EXAMINATION: Oriented to herself. Insight, judgment, recent and remote memory, attention, concentration, fund of knowledge poor, consistent with her diagnosis mentioned in my initial note. PLAN: No change from initial note. MAN Silas WOLFE MD DR: GEORGE/dacia JOB#: [id number] / [id number]
--- NOTE | 2019-09-19 21:36 | PDOC ---
Exam Note: Jorge Note: Please also refer to the separate dictated note~for this date of service dictated separately.~Patient seen individually. Discussed the patient with Nursing staff reviewed the chart.~Reviewed interim history and current functioning. Reviewed vital signs,~Labs/ Radiology~and current medications noted below. Continue current treatment with the changes noted in the dictated addendum note Assessment: Vital Signs/I&O: Vital Signs Date Time Temp Pulse Resp B/P (MAP) Pulse Ox O2 Delivery O2 Flow Rate FiO2 09/19/19 15:33 97.6 88 15 104/70 (81) 97 09/15/19 05:19 Room Air I & O 09/18/19 09/18/19 09/19/19 15:00 23:00 07:00 Intake Total 1080 ml 360 ml 240 ml Balance 1080 ml 360 ml 240 ml Current Medications: I have reviewed the current psychotropics carefully including drug interactions. Risk benefit ratio favors no change other than as noted in my dictated progress note. Diagnosis: Problems: (1) Bipolar disorder, curr episode mixed, severe, with psychotic features (2) Anxiety disorder (3) Dementia in Alzheimer's disease with delusions (4) Dementia in Alzheimer's disease with depression (5) Dementia, vascular, with delusions (6) Dementia, vascular, with depression (7) Impulse control disorder PILO WOLFE MD Sep 19, 2019 21:36
[2019-09-20] MEDS: traZODone 50 MG TABLET. PO PRN (00:48)
[2019-09-20 05:37] VITALS: BP 106/70
[2019-09-20 07:22] LABS: BASO % 0 % (0-3); EOS # 0.4 x10^3/uL (0.0-0.7); EOS % 6 % (0-3); HEMOGLOBIN 11.2 g/dL (12.0-15.5); LYMPH # 1.4 x10^3/uL (1.0-4.8); LYMPH % 24 % (24-48); MEAN CORPUSCULAR HEMOGLOBIN 28 pg (25-35); MEAN CORPUSCULAR HGB CONC 32 g/dL (31-37); MEAN CORPUSCULAR VOLUME 87 fL (79-100); MONO # 0.6 x10^3/uL (0.0-1.1); MONO % 10 % (0-9); NEUT # 3.5 x10^3uL (1.8-7.7); NEUT % 59 % (31-73); PLATELET COUNT 308 x10^3/uL (140-400); RED BLOOD COUNT 4.02 x10^6/uL (3.50-5.40); RED CELL DISTRIBUTION WIDTH 16.9 % (11.5-14.5); WHITE BLOOD COUNT 5.9 x10^3/uL (4.0-11.0)
[2019-09-20 07:41] LABS: ALBUMIN/GLOBULIN RATIO 0.7 (1.0-1.7); CREATININE 0.7 mg/dL (0.6-1.0); GFR 82.3; POTASSIUM 3.7 mmol/L (3.5-5.1); TOTAL BILIRUBIN 0.1 mg/dL (0.2-1.0); TOTAL PROTEIN 7.6 g/dL (6.4-8.2)
[2019-09-20] MEDS: DIVALPROEX 125 MG CAP.SPRINK PO SCH ×2 (08:22→17:31)
[2019-09-20] MEDS: THIAMINE 100 MG TABLET. PO SCH (08:22)
[2019-09-20] MEDS: traZODone 50 MG TABLET. PO SCH ×2 (08:22→17:31)
[2019-09-20] MEDS: QUEtiapine 50 MG TABLET. PO SCH ×3 (08:23→17:31)
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
[2019-09-20 16:04] VITALS: BP 102/67
[2019-09-20] MEDS: traZODone 100 MG TABLET. PO SCH (19:51)
[2019-09-20] MEDS: MIRTAZAPINE 15 MG TABLET PO SCH (19:51)
--- NOTE | 2019-09-20 21:29 | PDOC ---
Exam Note: Jorge Note: Please also refer to the separate dictated note~for this date of service dictated separately.~Patient seen individually. Discussed the patient with Nursing staff reviewed the chart.~Reviewed interim history and current functioning. Reviewed vital signs,~Labs/ Radiology~and current medications noted below. Continue current treatment with the changes noted in the dictated addendum note Assessment: Vital Signs/I&O: Vital Signs Date Time Temp Pulse Resp B/P (MAP) Pulse Ox O2 Delivery O2 Flow Rate FiO2 09/20/19 16:04 98.3 93 18 102/67 (79) 96 09/20/19 05:37 Room Air I & O 09/19/19 09/19/19 09/20/19 15:00 23:00 07:00 Intake Total 840 ml 360 ml Balance 840 ml 360 ml Labs: Laboratory Tests Test 09/20/19 06:58 White Blood Count 5.9 x10^3/uL (4.0-11.0) Red Blood Count 4.02 x10^6/uL (3.50-5.40) Hemoglobin 11.2 g/dL (12.0-15.5) L Hematocrit 35.0 % (36.0-47.0) L Mean Corpuscular Volume 87 fL (79-100) Mean Corpuscular Hemoglobin 28 pg (25-35) Mean Corpuscular Hemoglobin Concent 32 g/dL (31-37) Red Cell Distribution Width 16.9 % (11.5-14.5) H Platelet Count 308 x10^3/uL (140-400) Neutrophils (%) (Auto) 59 % (31-73) Lymphocytes (%) (Auto) 24 % (24-48) Monocytes (%) (Auto) 10 % (0-9) H Eosinophils (%) (Auto) 6 % (0-3) H Basophils (%) (Auto) 0 % (0-3) Neutrophils # (Auto) 3.5 x10^3uL (1.8-7.7) Lymphocytes # (Auto) 1.4 x10^3/uL (1.0-4.8) Monocytes # (Auto) 0.6 x10^3/uL (0.0-1.1) Eosinophils # (Auto) 0.4 x10^3/uL (0.0-0.7) Basophils # (Auto) 0.0 x10^3/uL (0.0-0.2) Sodium Level 144 mmol/L (136-145) Potassium Level 3.7 mmol/L (3.5-5.1) Chloride Level 107 mmol/L (98-107) Carbon Dioxide Level 28 mmol/L (21-32) Anion Gap 9 (6-14) Blood Urea Nitrogen 16 mg/dL (7-20) Creatinine 0.7 mg/dL (0.6-1.0) Estimated GFR (Cockcroft-Gault) 82.3 BUN/Creatinine Ratio 23 (6-20) H Glucose Level 93 mg/dL (70-99) Calcium Level 9.0 mg/dL (8.5-10.1) Total Bilirubin 0.1 mg/dL (0.2-1.0) L Aspartate Amino Transferase (AST) 16 U/L (15-37) Alanine Aminotransferase (ALT) 17 U/L (14-59) Alkaline Phosphatase 81 U/L (46-116) Total Protein 7.6 g/dL (6.4-8.2) Albumin 3.0 g/dL (3.4-5.0) L Albumin/Globulin Ratio 0.7 (1.0-1.7) L Current Medications: I have reviewed the current psychotropics carefully including drug interactions. Risk benefit ratio favors no change other than as noted in my dictated progress note. Diagnosis: Problems: (1) Bipolar disorder, curr episode mixed, severe, with psychotic features (2) Anxiety disorder (3) Dementia in Alzheimer's disease with delusions (4) Dementia in Alzheimer's disease with depression (5) Dementia, vascular, with delusions (6) Dementia, vascular, with depression (7) Impulse control disorder PILO WOLFE MD Sep 20, 2019 21:28
[2019-09-21] MEDS: traZODone 100 MG TABLET. PO SCH (01:17)
[2019-09-21 05:21] VITALS: BP 99/56
[2019-09-21] MEDS: DIVALPROEX 125 MG CAP.SPRINK PO SCH ×2 (08:08→17:23)
[2019-09-21] MEDS: traZODone 50 MG TABLET. PO SCH ×2 (08:09→17:23)
[2019-09-21] MEDS: THIAMINE 100 MG TABLET. PO SCH (08:09)
[2019-09-21] MEDS: QUEtiapine 50 MG TABLET. PO SCH ×3 (08:09→17:23)
--- NOTE | 2019-09-21 08:50 | PN ---
DATE: 09/19/2019 PSYCHIATRIC PROGRESS NOTE This late entry 09/19/2019 covers the elements not covered in my initial note. SUBJECTIVE: I met with the patient in the evening of 09/19/2019. Per REGINO Anderson, the patient slept 7 hours previous night. She gets quite agitated with one of the other patients, received p.r.n. x 1. She remains in a wheelchair, up and down the hallway, took a nap in the afternoon, then did better. REVIEW OF SYSTEMS: No CV, , pulmonary, eye, ENT system symptoms on review. Reliability poor. MENTAL STATUS EXAM: Oriented to herself. Insight, judgment, recent and remote memory, attention, concentration, fund of knowledge poor, consistent with her diagnosis mentioned in my initial note. PLAN: No change from initial note. MAN Silas WOLFE MD DR: GEORGE/dacia JOB#: [id number] / [id number]
--- NOTE | 2019-09-21 09:20 | PN ---
DATE: 09/20/2019 PSYCHIATRIC PROGRESS NOTE This late entry 09/20/2019 covers the elements not covered in my initial note. SUBJECTIVE: I met with the patient evening of 09/20/2019 and the patient staffed at a treatment team meeting with the entire team in the morning of 09/20/2019 along with the patient's daughter, Lanie medrano. The patient slept 7 hours previous night. She remains in a wheelchair, somewhat restless, and up and down the hallway. REVIEW OF SYSTEMS: No CV, , pulmonary, eye system symptoms on review. Reliability poor. MENTAL STATUS EXAM: Oriented to herself. Insight, judgment, recent and remote memory, attention, concentration, fund of knowledge poor, consistent with her diagnosis mentioned in my initial note. PLAN: No change from initial note. MAN Silas WOLFE MD DR: GEORGE/dacia JOB#: [id number] / [id number]
[2019-09-21 15:40] VITALS: BP 107/64
[2019-09-21] MEDS: MELATONIN 3 MG TABLET PO SCH (19:39)
[2019-09-21] MEDS: MIRTAZAPINE 15 MG TABLET PO SCH (19:39)
[2019-09-21] MEDS: fentaNYL 12MCG/HR 1 PATCH PATCH TD SCH (19:39)
--- NOTE | 2019-09-21 21:38 | PDOC ---
Exam Note: Jorge Note: Please also refer to the separate dictated note~for this date of service dictated separately.~Patient seen individually. Discussed the patient with Nursing staff reviewed the chart.~Reviewed interim history and current functioning. Reviewed vital signs,~Labs/ Radiology~and current medications noted below. Continue current treatment with the changes noted in the dictated addendum note Assessment: Vital Signs/I&O: Vital Signs Date Time Temp Pulse Resp B/P (MAP) Pulse Ox O2 Delivery O2 Flow Rate FiO2 09/21/19 15:40 97.7 89 20 107/64 (78) 97 09/20/19 05:37 Room Air I & O 09/20/19 09/20/19 09/21/19 15:00 23:00 07:00 Intake Total 600 ml 120 ml Balance 600 ml 120 ml Current Medications: Meds: Current Medications Medications (Trade) Dose Ordered Sig/Julissa Route PRN Reason Start Time Stop Time Status Last Admin Dose Admin Melatonin (Melatonin) 3 mg QHS PO 09/21/19 21:00 09/21/19 19:39 Fentanyl (Duragesic 12mcg/ Hr) 1 patch Q3DAYS TD 09/21/19 18:30 09/21/19 19:39 I have reviewed the current psychotropics carefully including drug interactions. Risk benefit ratio favors no change other than as noted in my dictated progress note. Diagnosis: Problems: (1) Bipolar disorder, curr episode mixed, severe, with psychotic features (2) Anxiety disorder (3) Dementia in Alzheimer's disease with delusions (4) Dementia in Alzheimer's disease with depression (5) Dementia, vascular, with delusions (6) Dementia, vascular, with depression (7) Impulse control disorder PILO WOLFE MD Sep 21, 2019 21:38
[2019-09-22 05:37] VITALS: BP 110/67
[2019-09-22] MEDS: QUEtiapine 50 MG TABLET. PO SCH ×3 (11:54→16:56)
[2019-09-22] MEDS: THIAMINE 100 MG TABLET. PO SCH (11:54)
[2019-09-22] MEDS: DIVALPROEX 125 MG CAP.SPRINK PO SCH ×2 (11:54→16:56)
[2019-09-22] MEDS: traZODone 50 MG TABLET. PO SCH ×2 (11:56→16:59)
[2019-09-22 15:47] VITALS: BP 107/68
[2019-09-22] MEDS: MIRTAZAPINE 15 MG TABLET PO SCH (19:31)
[2019-09-22] MEDS: traZODone 100 MG TABLET. PO SCH (19:31)
[2019-09-22] MEDS: MELATONIN 3 MG TABLET PO SCH (19:31)
[2019-09-23 06:05] VITALS: BP 125/87
[2019-09-23] MEDS: DIVALPROEX 125 MG CAP.SPRINK PO SCH ×2 (08:16→17:01)
[2019-09-23] MEDS: THIAMINE 100 MG TABLET. PO SCH (08:16)
[2019-09-23] MEDS: QUEtiapine 50 MG TABLET. PO SCH ×3 (08:16→17:01)
[2019-09-23] MEDS: traZODone 50 MG TABLET. PO SCH ×2 (08:17→17:01)
[2019-09-23] MEDS: MIRTAZAPINE 15 MG TABLET PO SCH (19:40)
[2019-09-23] MEDS: traZODone 100 MG TABLET. PO SCH (19:40)
[2019-09-23] MEDS: MELATONIN 3 MG TABLET PO SCH (19:41)
--- NOTE | 2019-09-23 21:47 | PDOC ---
Exam Note: Jorge Note: This is a late entry for DOS 09/22/2019. VS - Last 72 Hours, by Label Date Time Temp Pulse Resp B/P (MAP) Pulse Ox O2 Delivery O2 Flow Rate FiO2 09/23/19 06:05 97.8 68 22 125/87 (100) 94 Room Air 09/22/19 15:47 97.2 82 16 107/68 (81) 98 09/22/19 05:37 98.0 82 16 110/67 (81) 95 09/21/19 15:40 97.7 89 20 107/64 (78) 97 09/21/19 05:21 96.6 79 16 99/56 (70) 98 Please also refer to the separate dictated note~for this date of service dictated separately.~Patient seen individually. Discussed the patient with [facility] staff reviewed the chart.~Reviewed interim history and current functioning. Reviewed vital signs,~Labs/ Radiology~and current medications noted below. Continue current treatment with the changes noted in the dictated addendum note Assessment: Vital Signs/I&O: Vital Signs Date Time Temp Pulse Resp B/P (MAP) Pulse Ox O2 Delivery O2 Flow Rate FiO2 09/23/19 06:05 97.8 68 22 125/87 (100) 94 Room Air I & O 09/22/19 09/22/19 09/23/19 15:00 23:00 07:00 Intake Total 360 ml 240 ml Balance 360 ml 240 ml Current Medications: I have reviewed the current psychotropics carefully including drug interactions. Risk benefit ratio favors no change other than as noted in my dictated progress note. Diagnosis: Problems: (1) Bipolar disorder, curr episode mixed, severe, with psychotic features (2) Anxiety disorder (3) Dementia in Alzheimer's disease with delusions (4) Dementia in Alzheimer's disease with depression (5) Dementia, vascular, with delusions (6) Dementia, vascular, with depression (7) Impulse control disorder PILO WOLFE MD Sep 23, 2019 21:47
--- NOTE | 2019-09-23 21:59 | PDOC ---
Exam Note: Jorge Note: Please also refer to the separate dictated note~for this date of service dictated separately.~Patient seen individually. Discussed the patient with Nursing staff reviewed the chart.~Reviewed interim history and current functioning. Reviewed vital signs,~Labs/ Radiology~and current medications noted below. Continue current treatment with the changes noted in the dictated addendum note Assessment: Vital Signs/I&O: Vital Signs Date Time Temp Pulse Resp B/P (MAP) Pulse Ox O2 Delivery O2 Flow Rate FiO2 09/23/19 06:05 97.8 68 22 125/87 (100) 94 Room Air I & O 09/22/19 09/22/19 09/23/19 15:00 23:00 07:00 Intake Total 360 ml 240 ml Balance 360 ml 240 ml Current Medications: I have reviewed the current psychotropics carefully including drug interactions. Risk benefit ratio favors no change other than as noted in my dictated progress note. Diagnosis: Problems: (1) Bipolar disorder, curr episode mixed, severe, with psychotic features (2) Anxiety disorder (3) Dementia in Alzheimer's disease with delusions (4) Dementia in Alzheimer's disease with depression (5) Dementia, vascular, with delusions (6) Dementia, vascular, with depression (7) Impulse control disorder PILO WOLFE MD Sep 23, 2019 21:59
--- NOTE | 2019-09-23 23:24 | PN ---
DATE: 09/21/2019 PSYCHIATRIC PROGRESS NOTE This late entry 09/21/2019 covers elements not covered in my initial note. SUBJECTIVE: I met with the patient evening of 09/21/2019. Per REGINO Ochoa, the patient slept 4 hours previous night. She takes her medications crushed in pudding. She is loud at times, confused. Sleeping poorly. We will start melatonin 4 mg at bedtime. REVIEW OF SYSTEMS: Ambulation impaired, with walker. No CV, , pulmonary, eye, ENT system symptoms on review. Reliability poor. MENTAL STATUS EXAM: Oriented to herself. Insight, judgment, recent and remote memory, attention, concentration, fund of knowledge poor, consistent with her diagnosis mentioned in my initial note. PLAN: Start melatonin as noted. Rest unchanged for now. MAN Silas WOLFE MD DR: GEORGE/dacia JOB#: [id number] / [id number]
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
[2019-09-24 06:34] VITALS: BP 119/73
[2019-09-24] MEDS: DIVALPROEX 125 MG CAP.SPRINK PO SCH ×2 (08:18→17:21)
[2019-09-24] MEDS: traZODone 50 MG TABLET. PO SCH ×2 (08:18→17:21)
[2019-09-24] MEDS: fentaNYL 12MCG/HR 1 PATCH PATCH TD SCH (08:19)
[2019-09-24] MEDS: QUEtiapine 50 MG TABLET. PO SCH ×3 (08:19→17:21)
[2019-09-24] MEDS: THIAMINE 100 MG TABLET. PO SCH (08:19)
[2019-09-24 16:11] VITALS: BP 91/56
[2019-09-24] MEDS: MELATONIN 3 MG TABLET PO SCH (19:56)
[2019-09-24] MEDS: traZODone 100 MG TABLET. PO SCH (19:56)
[2019-09-24] MEDS: MIRTAZAPINE 15 MG TABLET PO SCH (19:56)
--- NOTE | 2019-09-24 21:26 | PDOC ---
Exam Note: Jorge Note: Please also refer to the separate dictated note~for this date of service dictated separately.~Patient seen individually. Discussed the patient with Nursing staff reviewed the chart.~Reviewed interim history and current functioning. Reviewed vital signs,~Labs/ Radiology~and current medications noted below. Continue current treatment with the changes noted in the dictated addendum note Assessment: Vital Signs/I&O: Vital Signs Date Time Temp Pulse Resp B/P (MAP) Pulse Ox O2 Delivery O2 Flow Rate FiO2 09/24/19 16:11 98.5 79 18 91/56 (68) 93 09/23/19 06:05 Room Air I & O 09/23/19 09/23/19 09/24/19 15:00 23:00 07:00 Intake Total 360 ml 120 ml Balance 360 ml 120 ml Current Medications: I have reviewed the current psychotropics carefully including drug interactions. Risk benefit ratio favors no change other than as noted in my dictated progress note. Diagnosis: Problems: (1) Bipolar disorder, curr episode mixed, severe, with psychotic features (2) Anxiety disorder (3) Dementia in Alzheimer's disease with delusions (4) Dementia in Alzheimer's disease with depression (5) Dementia, vascular, with delusions (6) Dementia, vascular, with depression (7) Impulse control disorder PILO WOLFE MD Sep 24, 2019 21:26
--- NOTE | 2019-09-25 00:41 | PN ---
DATE: 09/23/2019 PSYCHIATRIC PROGRESS NOTE This late entry 09/23/2019 covers the elements not covered in my initial note. SUBJECTIVE: I met with the patient in the evening of 09/23/2019. Per REGINO Baez, the patient slept 8-1/4 hours previous night. She has been confused, somewhat anxious, agitated with another patient that she has a prior history with. Resistive to medication. Received Zyprexa at 3:00 p.m. and at night, then did better. REVIEW OF SYSTEMS: Ambulation impaired, in wheelchair. No CV, , pulmonary, eye, ENT system symptoms on review. Reliability poor. MENTAL STATUS EXAM: Oriented to herself. Insight, judgment, recent and remote memory, attention, concentration, fund of knowledge poor, consistent with her diagnosis mentioned in my initial note. PLAN: No change from initial note. MAN Silas WOLFE MD DR: GEORGE/dacia JOB#: [id number] / [id number]
[2019-09-25 06:03] VITALS: BP 92/52
[2019-09-25 06:58] LABS: BASO % 0 % (0-3); EOS # 0.4 x10^3/uL (0.0-0.7); EOS % 7 % (0-3); HEMATOCRIT 29.5 % (36.0-47.0); HEMOGLOBIN 9.7 g/dL (12.0-15.5); LYMPH # 1.6 x10^3/uL (1.0-4.8); LYMPH % 25 % (24-48); MEAN CORPUSCULAR HEMOGLOBIN 28 pg (25-35); MEAN CORPUSCULAR HGB CONC 33 g/dL (31-37); MEAN CORPUSCULAR VOLUME 86 fL (79-100); MONO # 0.6 x10^3/uL (0.0-1.1); MONO % 10 % (0-9); NEUT # 3.5 x10^3uL (1.8-7.7); NEUT % 57 % (31-73); PLATELET COUNT 268 x10^3/uL (140-400); RED BLOOD COUNT 3.44 x10^6/uL (3.50-5.40); RED CELL DISTRIBUTION WIDTH 17.1 % (11.5-14.5); WHITE BLOOD COUNT 6.2 x10^3/uL (4.0-11.0)
[2019-09-25 07:06] LABS: ALBUMIN 2.5 g/dL (3.4-5.0); ALBUMIN/GLOBULIN RATIO 0.6 (1.0-1.7); CALCIUM 8.5 mg/dL (8.5-10.1); CREATININE 0.7 mg/dL (0.6-1.0); GFR 82.3; POTASSIUM 4.1 mmol/L (3.5-5.1); TOTAL BILIRUBIN 0.1 mg/dL (0.2-1.0); TOTAL PROTEIN 6.5 g/dL (6.4-8.2)
[2019-09-25] MEDS: CHOLECALCIFEROL (VITAMIN D3) 50,000 UNIT CAPSULE PO SCH (11:15)
[2019-09-25] MEDS: QUEtiapine 50 MG TABLET. PO SCH ×3 (11:15→16:58)
[2019-09-25] MEDS: THIAMINE 100 MG TABLET. PO SCH (11:16)
[2019-09-25] MEDS: traZODone 50 MG TABLET. PO SCH ×2 (11:16→16:59)
[2019-09-25] MEDS: DIVALPROEX 125 MG CAP.SPRINK PO SCH ×2 (11:16→16:58)
--- NOTE | 2019-09-25 13:49 | PN ---
DATE: 09/24/2019 PSYCHIATRIC PROGRESS NOTE This late entry 09/24/2019, covers the elements not covered in my initial note. SUBJECTIVE: I met with the patient evening of 09/24/2019. Per REGINO Lau, the patient slept 7-1/2 hours previous night. She has been irritable with another patient who she is known from the past. Received Zyprexa. She was sedated after this. Less restless after that. REVIEW OF SYSTEMS: Ambulation impaired, in wheelchair. No CV, , pulmonary, eye, ENT system symptoms on review. Reliability poor. MENTAL STATUS EXAM: Oriented to herself. Insight, judgment, recent and remote memory, attention, concentration, fund of knowledge poor, consistent with her diagnoses. IMPRESSION: Major neurocognitive disorder, Alzheimer, vascular with delusion, depression, behavioral disturbance; anxiety disorder, unspecified; impulse control disorder, unspecified. PLAN: Continue current psychotropics. Adjust further as clinically indicated. PILO WOLFE MD DR: GEORGE/dacia JOB#: [id number] / [id number]
[2019-09-25 15:51] VITALS: BP 110/53
[2019-09-25] MEDS: traZODone 100 MG TABLET. PO SCH (20:13)
[2019-09-25] MEDS: MELATONIN 3 MG TABLET PO SCH (20:13)
[2019-09-25] MEDS: MIRTAZAPINE 15 MG TABLET PO SCH (20:13)
--- NOTE | 2019-09-25 21:19 | PDOC ---
Exam Note: Jorge Note: Please also refer to the separate dictated note~for this date of service dictated separately.~Patient seen individually. Discussed the patient with Nursing staff reviewed the chart.~Reviewed interim history and current functioning. Reviewed vital signs,~Labs/ Radiology~and current medications noted below. Continue current treatment with the changes noted in the dictated addendum note Assessment: Vital Signs/I&O: Vital Signs Date Time Temp Pulse Resp B/P (MAP) Pulse Ox O2 Delivery O2 Flow Rate FiO2 09/25/19 15:51 98.5 76 16 110/53 (72) 95 09/23/19 06:05 Room Air I & O 09/24/19 09/24/19 09/25/19 15:00 23:00 07:00 Intake Total 840 ml 720 ml Balance 840 ml 720 ml Labs: Laboratory Tests Test 09/25/19 06:42 White Blood Count 6.2 x10^3/uL (4.0-11.0) Red Blood Count 3.44 x10^6/uL (3.50-5.40) L Hemoglobin 9.7 g/dL (12.0-15.5) L Hematocrit 29.5 % (36.0-47.0) L Mean Corpuscular Volume 86 fL (79-100) Mean Corpuscular Hemoglobin 28 pg (25-35) Mean Corpuscular Hemoglobin Concent 33 g/dL (31-37) Red Cell Distribution Width 17.1 % (11.5-14.5) H Platelet Count 268 x10^3/uL (140-400) Neutrophils (%) (Auto) 57 % (31-73) Lymphocytes (%) (Auto) 25 % (24-48) Monocytes (%) (Auto) 10 % (0-9) H Eosinophils (%) (Auto) 7 % (0-3) H Basophils (%) (Auto) 0 % (0-3) Neutrophils # (Auto) 3.5 x10^3uL (1.8-7.7) Lymphocytes # (Auto) 1.6 x10^3/uL (1.0-4.8) Monocytes # (Auto) 0.6 x10^3/uL (0.0-1.1) Eosinophils # (Auto) 0.4 x10^3/uL (0.0-0.7) Basophils # (Auto) 0.0 x10^3/uL (0.0-0.2) Sodium Level 143 mmol/L (136-145) Potassium Level 4.1 mmol/L (3.5-5.1) Chloride Level 108 mmol/L (98-107) H Carbon Dioxide Level 31 mmol/L (21-32) Anion Gap 4 (6-14) L Blood Urea Nitrogen 16 mg/dL (7-20) Creatinine 0.7 mg/dL (0.6-1.0) Estimated GFR (Cockcroft-Gault) 82.3 BUN/Creatinine Ratio 23 (6-20) H Glucose Level 82 mg/dL (70-99) Calcium Level 8.5 mg/dL (8.5-10.1) Total Bilirubin 0.1 mg/dL (0.2-1.0) L Aspartate Amino Transferase (AST) 18 U/L (15-37) Alanine Aminotransferase (ALT) 15 U/L (14-59) Alkaline Phosphatase 70 U/L (46-116) Total Protein 6.5 g/dL (6.4-8.2) Albumin 2.5 g/dL (3.4-5.0) L Albumin/Globulin Ratio 0.6 (1.0-1.7) L Current Medications: I have reviewed the current psychotropics carefully including drug interactions. Risk benefit ratio favors no change other than as noted in my dictated progress note. Diagnosis: Problems: (1) Bipolar disorder, curr episode mixed, severe, with psychotic features (2) Anxiety disorder (3) Dementia in Alzheimer's disease with delusions (4) Dementia in Alzheimer's disease with depression (5) Dementia, vascular, with delusions (6) Dementia, vascular, with depression (7) Impulse control disorder PILO WOLFE MD Sep 25, 2019 21:19
[2019-09-26 05:45] VITALS: BP 103/59
[2019-09-26] MEDS: DIVALPROEX 125 MG CAP.SPRINK PO SCH ×2 (09:18→17:06)
[2019-09-26] MEDS: traZODone 50 MG TABLET. PO SCH ×2 (09:18→17:06)
[2019-09-26] MEDS: THIAMINE 100 MG TABLET. PO SCH (09:18)
[2019-09-26] MEDS: QUEtiapine 50 MG TABLET. PO SCH ×3 (09:18→17:05)
[2019-09-26 15:55] VITALS: BP 104/72
[2019-09-26] MEDS: traZODone 100 MG TABLET. PO SCH (21:20)
[2019-09-26] MEDS: MELATONIN 3 MG TABLET PO SCH (21:20)
[2019-09-26] MEDS: MIRTAZAPINE 15 MG TABLET PO SCH (21:20)
--- NOTE | 2019-09-26 21:21 | PDOC ---
Exam Note: Jorge Note: Please also refer to the separate dictated note~for this date of service dictated separately.~Patient seen individually. Discussed the patient with Nursing staff reviewed the chart.~Reviewed interim history and current functioning. Reviewed vital signs,~Labs/ Radiology~and current medications noted below. Continue current treatment with the changes noted in the dictated addendum note Assessment: Vital Signs/I&O: Vital Signs Date Time Temp Pulse Resp B/P (MAP) Pulse Ox O2 Delivery O2 Flow Rate FiO2 09/26/19 15:55 98.4 83 16 104/72 (83) 94 09/23/19 06:05 Room Air I & O 09/25/19 09/25/19 09/26/19 15:00 23:00 07:00 Intake Total 360 ml 360 ml Balance 360 ml 360 ml Current Medications: I have reviewed the current psychotropics carefully including drug interactions. Risk benefit ratio favors no change other than as noted in my dictated progress note. Diagnosis: Problems: (1) Bipolar disorder, curr episode mixed, severe, with psychotic features (2) Anxiety disorder (3) Dementia in Alzheimer's disease with delusions (4) Dementia in Alzheimer's disease with depression (5) Dementia, vascular, with delusions (6) Dementia, vascular, with depression (7) Impulse control disorder PILO WOLFE MD Sep 26, 2019 21:21
--- NOTE | 2019-09-26 22:37 | PN ---
DATE: 09/25/2019 PSYCHIATRIC PROGRESS NOTE This late entry, 09/25, covers elements not covered in my initial note. SUBJECTIVE: I met with the patient evening of 09/25. Per REGINO Ochoa, the patient slept 8-1/2 hours previous night. She has been more compliant with her medications at night; did well in the morning; around 2:00 p.m. was more agitated, hyperverbal, angry, yelling; received p.r.n. Zyprexa; then did better. 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 REVIEW OF SYSTEMS: Ambulation impaired, in wheelchair. No CV, , pulmonary, eye, ENT system symptoms on review. Reliability poor. MENTAL STATUS EXAM: Oriented to herself. Insight, judgment, recent and remote memory, attention, concentration, fund of knowledge poor, consistent with her diagnosis mentioned in my initial note. PLAN: No change from initial note. PILO WOLFE MD DR: GEORGE/dacia JOB#: [id number] / [id number]
[2019-09-27] MEDS ORDERED: CHOL500062 PO (01:29)
[2019-09-27] MEDS ORDERED: DIVA500T2 PO (01:30)
[2019-09-27] MEDS ORDERED: MAG-95 PO (01:30)
[2019-09-27] MEDS ORDERED: MAGN24003 PO (01:31)
[2019-09-27] MEDS ORDERED: METH57CR17 TP (01:32)
[2019-09-27] MEDS ORDERED: MELA3TAB43 PO (01:32)
[2019-09-27] MEDS ORDERED: OLAN5TAB9 PO ×2 (01:35→01:36)
[2019-09-27] MEDS ORDERED: FENT-73 TD (01:36)
[2019-09-27] MEDS ORDERED: FLUV50TA2 PO (01:37)
[2019-09-27] MEDS ORDERED: TRAZ-125 PO (01:38)
[2019-09-27] MEDS ORDERED: TRAZ-120 PO ×2 (01:38→01:39)
[2019-09-27 06:14] VITALS: BP 134/63
[2019-09-27] MEDS: QUEtiapine 50 MG TABLET. PO SCH ×2 (08:22→13:00)
[2019-09-27] MEDS: DIVALPROEX 125 MG CAP.SPRINK PO SCH (08:22)
[2019-09-27] MEDS: THIAMINE 100 MG TABLET. PO SCH (08:22)
[2019-09-27] MEDS: fentaNYL 12MCG/HR 1 PATCH PATCH TD SCH (08:23)
[2019-09-27] MEDS: traZODone 50 MG TABLET. PO SCH (08:23)
--- NOTE | 2019-09-27 21:18 | PDOC ---
Exam Note: Jorge Note: Please also refer to the separate dictated note~for this date of service dictated separately.~Patient seen individually. Discussed the patient with Nursing staff reviewed the chart.~Reviewed interim history and current functioning. Reviewed vital signs,~Labs/ Radiology~and current medications noted below. Continue current treatment with the changes noted in the dictated addendum note Assessment: Vital Signs/I&O: Vital Signs Date Time Temp Pulse Resp B/P (MAP) Pulse Ox O2 Delivery O2 Flow Rate FiO2 09/27/19 12:15 18 92 Room Air 09/27/19 06:14 98.0 90 134/63 (86) I & O 09/26/19 09/26/19 09/27/19 15:00 23:00 07:00 Intake Total 360 ml 480 ml Output Total 1 ml Balance 360 ml 480 ml -1 ml Current Medications: I have reviewed the current psychotropics carefully including drug interactions. Risk benefit ratio favors no change other than as noted in my dictated progress note. Diagnosis: Problems: (1) Bipolar disorder, curr episode mixed, severe, with psychotic features (2) Anxiety disorder (3) Dementia in Alzheimer's disease with delusions (4) Dementia in Alzheimer's disease with depression (5) Dementia, vascular, with delusions (6) Dementia, vascular, with depression (7) Impulse control disorder PILO WOLFE MD Sep 27, 2019 21:18
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
--- NOTE | 2019-09-28 20:23 | PN ---
DATE: 09/26/2019 PSYCHIATRIC PROGRESS NOTE This late entry 09/26/2019 covers elements not covered in my initial note. SUBJECTIVE: I met with the patient evening of 09/26/2019. Per Don RN, patient slept 4-1/4 hours previous night. She slept 10 in the morning, compliant with medications, calmer in the morning, later yelling, crying, did comply with showers. REVIEW OF SYSTEMS: Ambulation impaired, in wheelchair. No CV, , pulmonary, eye system symptoms on review. MENTAL STATUS EXAM: Oriented to herself. Insight, judgment, recent and remote memory, attention, concentration, fund of knowledge poor, consistent with her diagnosis mentioned in my initial note. PLAN: No change from initial note. Probable discharged back to nursing facility 09/27/2019. MAN Silas WOLFE MD DR: GEORGE/dacia JOB#: [id number] / [id number]
== END 2019-09-27 12:45 | DRG 885 ==
LOC: ER 19:24 → GEROPSY 21:46
PROVIDERS: ADMIT Psychiatry & Neurology Psychiatry; ATTEND Psychiatry & Neurology Psychiatry
DX: F25.0 Schizoaffective disorder, bipolar type (principal); F01.51 Vascular dementia, unspecified severity, with behavioral disturbance; F02.81 Dementia in other diseases classified elsewhere, unspecified severity, with behavioral disturbance; G30.9 Alzheimer's disease, unspecified; F10.20 Alcohol dependence, uncomplicated; F41.9 Anxiety disorder, unspecified; F63.9 Impulse disorder, unspecified; G47.00 Insomnia, unspecified; M10.9 Gout, unspecified; Z79.899 Other long term (current) drug therapy; Z85.048 Personal history of other malignant neoplasm of rectum, rectosigmoid junction, and anus; Z90.49 Acquired absence of other specified parts of digestive tract; Z90.710 Acquired absence of both cervix and uterus; Z98.41 Cataract extraction status, right eye; Z88.0 Allergy status to penicillin
CPT/HCPCS: 36415; 80053; 80061; 80164; 81001; 82140; 82306; 82607; 83036; 83540; 83550; 83605; 83735; 84436; 84443; 84480; 85025; 85027; 86592; 93005; 99285-25